=== PATIENT | male | born 1940 | race Caucasian/White ===

== ENCOUNTER 2016-07-18 08:58 | Observation (INO) | payer OTHER ==
--- NOTE | 2016-07-18 09:33 | DR.GENAD ---
HPI - PCP Primary Care Physician: lizeth - HPI Comment HPI Comment: PATIENT WITH DEMENTIA WHO IS MORE CONFUSE CURRENTLY. HE IS ALSO URINATING A LOT. STARTED YESTERDAY AND WORSE TODAY. NO FEVER. NO TRAUMA. - Complaint/Symptoms Chief Complaint Doctors Comments: AMS, URINATING A LOT. Chief Complaint:: patient has been urinating alot the past couple of days and he stated he hurts in his penis area. patient has dementai - Nurses notes reviewed Nurses Notes Review: Yes - Source History Provided: Patient - Mode of Arrival Mode of Arrival: Ambulatory - Timing Onset of Chief Complaint: 07/17/16 Came on: Suddenly - Duration Duration: Constant Duration: Days - Severity Severity: Moderate PMH - PMH Past Medical History: Yes Past Medical History: Dementia, Hypertension Past Surgical History: Yes Surgical History: Appendectomy, Cholecystectomy, Ortho Surgery Past Surgical History Comment: eye - Family History History of Family Medical Conditions: No - Social History Does patient currently use any type of tobacco product: No Have you used tobacco products in the last 12 months: No Type of Tobacco Use: None Does any household member use tobacco: No Alcohol Use: None Do you use any recreational Drugs:: No Lives With: Family Lives Where: Home - infectious screening In the last 2 months have you had wt loss of >10#?: YES Have you had fever, night sweats or hemotysis?: No Have you traveled outside the country in the last 6 months?: No Isolation: Standard ROS - Review of Systems Constitutional: Weakness, Fatigue, Loss of Appetite. negative: Chills, Fever Eyes: No Symptoms Reported. negative: Eye Pain, Discharge ENTM: No Symptoms Reported. negative: Ear Pain, Nose Discharge, Nose Congestion , Throat Pain Respiratoy: Non-Productive Cough, Short of Breath. negative: Productive Cough, Wheezing, Hemoptysis Cardiovascular: negative: Chest Pain, Edema, Palpitations Gastrointestinal/Abdominal: No Symptoms Reported Genitourinary: Other (URINATING A LOT.). negative: Hematuria Neurological: Weakness Musculoskeletal: Muscle Pain Integumentary: No Symptoms Reported Hematologic/Lymphatic: Easy Bruising Endocrine: Increased Urine, Decreased Appetite All Other Systems: Reviewed and Negative Unable to Obtain Due To: Altered mental status PE - Vital Signs Vitals: Pulse Rate 58 Respiratory Rate 16 Blood Pressure 173/81 O2 Sat by Pulse Oximetry 99 - General Limitations: No Limitations General Appearance: Alert - Head Head Exam: Normal Inspection - Eyes Eye exam: Normal Appearance - ENT ENT Exam: Normal External Ear Exam External Ear Exam: Normal External Inspection TM/Canal Exam: Bilateral Normal Mouth Exam: Normal Inspection Throat Exam: Normal Inspection - Neck Neck Exam: Trachea Midline. negative: Tenderness, Meningismus, Lymphadenopathy - Chest Chest Inspection: Symmetric Chest Wall Rise - Respiratory Respiratory Exam: Normal Lung Sounds Bilat Respiratory Exam: Bilateral Rhonchi, Lower Rhonchi - Cardiovascular Cardiovascular Exam: Regular Rate, Normal Rhythm, Normal Heart Sounds - Abdominal Exam Abdominal Exam: Normal Bowel Sounds, Soft. negative: Tenderness - Extremities Extremities Exam: Normal Inspection - Back Back Exam: Paraspinal Tenderness - Neurologic Neurological Exam: Alert, CN II-XII Intact. negative: Oriented X3 - Psychiatric Psychiatric Exam: Anxious - Skin Skin Exam: Normal Color MDM - Additional Information Additional Information Obtained From: Family - Differential Diagnosis Differential Diagnosis: AMS, WEAKNESS, BRADYCARDIA, ND, CVA, TIA, UTI Course - Treatment Treatment: SEE ORDERS - Education/Counseling Education/Counseling: Patient, Family, Education Educated On: Diagnosis, Needs for Follow Up ROR - Labs Reviewed Laboratory Results Reviewed?: Yes Result Diagrams: 07/19/16 03:50 07/19/16 03:50 Laboratory: WBC 5.5 X10^3/uL (3.6-10.0) 07/18/16 09:55 RBC 4.91 X10^6/uL (4.7-6.0) 07/18/16 09:55 Hgb 14.2 g/dL (13.5-18.0) 07/18/16 09:55 Hct 40.6 % (42.0-54.0) L 07/18/16 09:55 MCV 82.8 fL (80.0-100.0) 07/18/16 09:55 MCH 28.9 pg (27.0-34.0) 07/18/16 09:55 MCHC 34.9 g/dL (33.0-35.0) 07/18/16 09:55 RDW 14.6 % (11.6-16.5) 07/18/16 09:55 Plt Count 146 X10^3/uL (150.0-450.0) L 07/18/16 09:55 MPV 8.0 fL (7.4-11.0) 07/18/16 09:55 Neut % 65.8 % (42.0-75.0) 07/18/16 09:55 Lymph % 23.7 % (21.0-51.0) 07/18/16 09:55 [place] % 6.2 % (0.0-13.0) 07/18/16 09:55 Eos % 2.9 % (0.9-2.9) 07/18/16 09:55 Baso % 1.4 % (0.2-1.0) H 07/18/16 09:55 Neut # 3.6 x10^3/uL (2.2-4.8) 07/18/16 09:55 Lymph # 1.3 X10^3/uL (1.3-2.9) 07/18/16 09:55 [place] # 0.3 x10^3/uL (0.3-0.8) 07/18/16 09:55 Eos # 0.2 x10^3/uL (0.0-0.2) 07/18/16 09:55 Baso # 0.1 X10^3/uL (0.0-0.1) 07/18/16 09:55 Absolute Nucleated RBC 0.1 /100WBC 07/18/16 09:55 Sodium 141 mmol/L (136-145) 07/18/16 09:55 Corrected Sodium 141 mmol/L (136-145) 07/18/16 09:55 Potassium 4.5 mmol/L (3.5-5.1) 07/18/16 09:55 Chloride 107 mmol/L (98-107) 07/18/16 09:55 Carbon Dioxide 31.2 mmol/L (21-32) 07/18/16 09:55 BUN 24 mg/dL (7-18) H 07/18/16 09:55 Creatinine 1.24 mg/dL (0.70-1.30) 07/18/16 09:55 Est GFR (MDRD) Af Amer > 60 (>60) 07/18/16 09:55 Est GFR (MDRD) Non-Af > 60 (>60) 07/18/16 09:55 Glucose 120 mg/dL (65-99) H 07/18/16 09:55 Calcium 9.2 mg/dL (8.5-10.1) 07/18/16 09:55 Corrected Calcium TNP 07/18/16 09:55 Total Bilirubin 0.70 mg/dL (0.2-1.0) 07/18/16 09:55 AST 27 Units/L (15-37) 07/18/16 09:55 ALT 28 Units/L (12-78) 07/18/16 09:55 Alkaline Phosphatase 48 Units/L (46-116) 07/18/16 09:55 Creatine Kinase 83 Units/L (39-308) 07/18/16 09:55 CK-MB (CK-2) 1.8 ng/mL (0-4.0) 07/18/16 09:55 CK/CKMB % Calc 2.2 % (<4) 07/18/16 09:55 Troponin I < 0.02 ng/mL (0-1.5) 07/18/16 09:55 B-Natriuretic Peptide 80.8 pg/mL (0-79) H 07/18/16 09:55 Total Protein 6.6 g/dL (6.4-8.2) 07/18/16 09:55 Albumin 3.7 g/dL (3.4-5.0) 07/18/16 09:55 Globulin 2.9 g/dL (2.5-4.5) 07/18/16 09:55 Albumin/Globulin Ratio 1.3 Ratio (1.1-2.1) 07/18/16 09:55 Specimen Type Clean catch urine 07/18/16 09:43 Urine Color Yellow (YELLOW) 07/18/16 09:43 Urine Appearance Hazy (CLEAR) 07/18/16 09:43 Urine pH 8.0 (5.0 - 8.0) 07/18/16 09:43 Ur Specific [place] 1.015 (1.000-1.030) 07/18/16 09:43 Urine Protein Negative (NEGATIVE) 07/18/16 09:43 Urine Glucose (UA) Negative (NEGATIVE) 07/18/16 09:43 Urine Ketones Negative (NEGATIVE) 07/18/16 09:43 Urine Occult Blood Negative (NEGATIVE) 07/18/16 09:43 Urine Nitrite Negative (NEGATIVE) 07/18/16 09:43 Urine Bilirubin Negative (NEGATIVE) 07/18/16 09:43 Urine Urobilinogen Normal (NORMAL) 07/18/16 09:43 Ur Leukocyte Esterase Negative (NEGATIVE) 07/18/16 09:43 Urine RBC 0-1 /HPF (NEGATIVE) 07/18/16 09:43 Urine WBC 0-1 /HPF (NEGATIVE) 07/18/16 09:43 Ur Squamous Epith Cells Rare /HPF (NEGATIVE) 07/18/16 09:43 Amorphous Sediment 2+ /HPF (NEGATIVE) 07/18/16 09:43 Urine Bacteria Trace /HPF (NEGATIVE) 07/18/16 09:43 Ur Culture Indicated? No/not indicated 07/18/16 09:43 - XRAY XRAY Interpreted by: Radiologist XRAY Findings: REPORT DISCUSS WITH FAMILY AND PATIENT. - EKG Rhythm: SB - Diagnosis Discharge Problem: Generalized weakness Mental status alteration Qualifiers: Altered mental status type: transient alteration of awareness Qualified Code(s) : R40.4 - Transient alteration of awareness - Discharge Plan Disposition: ADMITTED INPATIENT Condition: Stable - Follow ups/Referrals - Instructions
[2016-07-18 09:50] LABS: BILIRUBIN,URINE NEGATIVE (NEGATIVE); BLOOD/HEMOGLOBIN,URINE NEGATIVE (NEGATIVE); GLUCOSE, URINE NEGATIVE (NEGATIVE); KETONES,URINE NEGATIVE (NEGATIVE); LEUKOCYTE ESTERASE ,URINE NEGATIVE (NEGATIVE); NITRITES,URINE NEGATIVE (NEGATIVE); PROTEIN,URINE NEGATIVE (NEGATIVE); UROBILINOGEN,URINE NORMAL (NORMAL)
[2016-07-18 10:02] LABS: AMORPHOUS SEDIMENT,UR 2+ /HPF (NEGATIVE); APPEARANCE,URINE HAZY (CLEAR); BACTERIA,URINE TRACE /HPF (NEGATIVE); COLOR,URINE YELLOW (YELLOW); RBC,URINE 0-1 /HPF (NEGATIVE); SQUAMOUS EPITHELIAL CELL,UR RARE /HPF (NEGATIVE)
[2016-07-18 10:08] LABS: BASOPHILS # (AUTO) 0.1 X10^3/uL (0.0-0.1); BASOPHILS % (AUTO) 1.4 % (0.2-1.0); EOSINOPHILS # (AUTO) 0.2 x10^3/uL (0.0-0.2); EOSINOPHILS % (AUTO) 2.9 % (0.9-2.9); HEMATOCRIT 40.6 % (42.0-54.0); HEMOGLOBIN 14.2 g/dL (13.5-18.0); LYMPHOCYTES # (AUTO) 1.3 X10^3/uL (1.3-2.9); LYMPHOCYTES % (AUTO) 23.7 % (21.0-51.0); MEAN CORPUSCULAR HEMOGLOBIN 28.9 pg (27.0-34.0); MEAN CORPUSCULAR HGB CONC 34.9 g/dL (33.0-35.0); MEAN CORPUSCULAR VOLUME 82.8 fL (80.0-100.0); MONOCYTES # (AUTO) 0.3 x10^3/uL (0.3-0.8); MONOCYTES % (AUTO) 6.2 % (0.0-13.0); NEUTROPHILS # (AUTO) 3.6 x10^3/uL (2.2-4.8); NEUTROPHILS % (AUTO) 65.8 % (42.0-75.0); PLATELET COUNT 146 X10^3/uL (150.0-450.0); RED BLOOD COUNT 4.91 X10^6/uL (4.7-6.0); RED CELL DISTRIBUTION WIDTH 14.6 % (11.6-16.5); WHITE BLOOD COUNT 5.5 X10^3/uL (3.6-10.0)
--- NOTE | 2016-07-18 10:13 | RAD ---
HISTORY: Chest pain Study: Chest one view Comparison: None Findings: The trachea is midline. The cardiac silhouette is unremarkable. The lungs are clear without focal infiltrate or effusion. The bony thorax is unremarkable. IMPRESSION: 1. No acute cardiopulmonary disease. Reported By:
[2016-07-18 10:20] LABS: BLOOD UREA NITROGEN 24 mg/dL (7-18); CALCIUM 9.2 mg/dL (8.5-10.1); CARBON DIOXIDE 31.2 mmol/L (21-32); CHLORIDE 107 mmol/L (98-107); COR NA(FOR HYPERGLY) 141 mmol/L (136-145); CREATININE 1.24 mg/dL (0.70-1.30); GLUCOSE 120 mg/dL (65-99); SODIUM 141 mmol/L (136-145); TROPONIN I < 0.02 ng/mL (0-1.5); eGFR BLACK RACES > 60 (>60); eGFR NON BLACK RACES > 60 (>60)
[2016-07-18 10:22] LABS: B-TYPE NATRIURETIC PEPTIDE 80.8 pg/mL (0-79)
[2016-07-18 10:24] LABS: ALANINE AMINOTRANSFERASE 28 Units/L (12-78); ALBUMIN 3.7 g/dL (3.4-5.0); ALKALINE PHOSPHATASE 48 Units/L (46-116); ASPARTATE AMINO TRANSFERASE 27 Units/L (15-37); CKMB % 2.2 % (<4); CREATINE KINASE 83 Units/L (39-308); CREATINE KINASE MB 1.8 ng/mL (0-4.0); TOTAL PROTEIN 6.6 g/dL (6.4-8.2)
--- NOTE | 2016-07-18 12:13 | CT ---
HISTORY: Altered mental status Study: CT head without contrast Comparison: None Technique: Axial non contrast images with coronal and sagittal reformats. Dose reduction procedures were used with MA/kv adjusted for body size. Findings: The ventricles are normal in size shape and position. Age-related cortical atrophy is present. There is decreased attenuation in the periventricular white matter suggestive of small vessel vascular di sease. Old lacunar infarcts are present in the right thalamus and left centrum semiovale. There is n o definite evidence for visible recent CVA, hemorrhage, mass lesion, or extra-axial fluid collection . Those sinuses visualized were clear. 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
[2016-07-18] MEDS: NS 1000 ML 1,000 ML IV SCH ×2 (14:40→22:31)
[2016-07-18 16:09] LABS: CKMB % 1.7 % (<4); CREATINE KINASE 79 Units/L (39-308); CREATINE KINASE MB 1.3 ng/mL (0-4.0); TROPONIN I < 0.02 ng/mL (0-1.5)
[2016-07-18] MEDS: VISTARIL PO PRN (18:35)
[2016-07-18] MEDS: FLOMAX PO SCH (21:10)
[2016-07-18 22:58] LABS: CKMB % 1.5 % (<4); CREATINE KINASE 104 Units/L (39-308); CREATINE KINASE MB 1.6 ng/mL (0-4.0); TROPONIN I < 0.02 ng/mL (0-1.5)
[2016-07-19] MEDS: NS 1000 ML 1,000 ML IV SCH ×3 (05:59→21:36)
[2016-07-19 06:22] LABS: BASOPHILS # (AUTO) 0.1 X10^3/uL (0.0-0.1); BASOPHILS % (AUTO) 1.2 % (0.2-1.0); EOSINOPHILS # (AUTO) 0.2 x10^3/uL (0.0-0.2); EOSINOPHILS % (AUTO) 4.7 % (0.9-2.9); LYMPHOCYTES # (AUTO) 1.7 X10^3/uL (1.3-2.9); LYMPHOCYTES % (AUTO) 36.1 % (21.0-51.0); MEAN CORPUSCULAR HGB CONC 35.1 g/dL (33.0-35.0); MEAN CORPUSCULAR VOLUME 82.7 fL (80.0-100.0); MEAN PLATELET VOLUME 8.8 fL (7.4-11.0); MONOCYTES # (AUTO) 0.4 x10^3/uL (0.3-0.8); MONOCYTES % (AUTO) 8.4 % (0.0-13.0); NEUTROPHILS # (AUTO) 2.3 x10^3/uL (2.2-4.8); NEUTROPHILS % (AUTO) 49.6 % (42.0-75.0); PLATELET COUNT 120 X10^3/uL (150.0-450.0); RED BLOOD COUNT 4.48 X10^6/uL (4.7-6.0); RED CELL DISTRIBUTION WIDTH 14.3 % (11.6-16.5); WHITE BLOOD COUNT 4.7 X10^3/uL (3.6-10.0)
[2016-07-19 07:17] LABS: ALANINE AMINOTRANSFERASE 25 Units/L (12-78); ALBUMIN 3.1 g/dL (3.4-5.0); ALKALINE PHOSPHATASE 41 Units/L (46-116); ASPARTATE AMINO TRANSFERASE 25 Units/L (15-37); BLOOD UREA NITROGEN 20 mg/dL (7-18); CALCIUM 8.6 mg/dL (8.5-10.1); CARBON DIOXIDE 26.4 mmol/L (21-32); CHLORIDE 110 mmol/L (98-107); COR CA(FOR HYPOALB) 9.3 mg/dL (8.5-10.1); CREATININE 1.01 mg/dL (0.70-1.30); GLUCOSE 84 mg/dL (65-99); SODIUM 143 mmol/L (136-145); TOTAL PROTEIN 5.6 g/dL (6.4-8.2); eGFR BLACK RACES > 60 (>60); eGFR NON BLACK RACES > 60 (>60)
[2016-07-19] MEDS: ZESTRIL TAB 40 MG PO SCH (09:26)
--- NOTE | 2016-07-19 11:24 | CT ---
HISTORY: Low back pain. Study: CT lumbar spine without contrast Comparison: None available. Technique: Multiple axial images of the lumbar spine were obtained from the thoracolumbar junction to the sacrum without the administration of IV contrast. Sagittal and coronal reformats were perfor med and reviewed. Dose reduction techniques including Automated Exposure Control (AEC) and adjustme nt of mA and kV were utilized. Findings: Diffuse osteopenia. Multilevel disc desiccation with mild to moderate disk height loss. No acute fra cture or listhesis. Multilevel facet arthrosis, endplate sclerosis, and disk osteophyte complexes. 1 .3 cm hypodense lesion within the right superior renal pole with internal Hounsfield units consisten t with fluid. There is some thin surrounding calcification. 2 nonobstructing left superior renal lucretia e nephroliths, the largest measuring 6 mm in greatest dimension. Moderate atherosclerotic vascular c alcifications of the abdominal aorta and its major branching vessels. No obvious aneurysmal dilatati on. Remaining soft tissue structures demonstrate an unremarkable noncontrast appearance. IMPRESSION: 1. No acute osseous abnormality. 2. Nonobstructing left renal nephroliths. 3. Other chronic findings as above. Reported By:
--- NOTE | 2016-07-19 13:47 | DR.H&P ---
H&P - History & Physical for Day of: H&P Date: 07/18/16 - Chief Complaint Chief Complaint: PATIENT WITH DEMENTIA WHO IS MORE CONFUSE CURRENTLY. HE IS ALSO URINATING A LOT. STARTED YESTERDAY AND WORSE TODAY. NO FEVER. NO TRAUMA. - Allergies Allergies/Adverse Reactions: Allergies Allergy/AdvReac Type Severity Reaction Status Date / Time Codeine Allergy Verified 07/18/16 09:00 - History of Present Illness History of Present Illness: [address] NORIEGA ADMITTED FROM ER AFTER PRESENTING WITH INCREASED WEAKNESS AND CONFUSION. PT'S FAMILY CONCERNED ABOUT POSSIBLE CVA, AND PT HAS NEVER BEEN "DIAGNOSED" WITH DEMENTIA. PLAN TO CT HEAD, ADMIT FOR FURTHER EVALUATION OF CHANGES IN MENTAL STATUS. - Past Medical History Past Medical History: Arthritis, Dementia, GERD, Hypertension - Past Surgical History Surgical History: Appendectomy, Cholecystectomy, Ortho Surgery - Family History Family Medical History: [place] - Social History Does patient currently use any type of tobacco product: No Have you used tobacco products in the last 12 months: No Type of Tobacco Use: None Does any household member use tobacco: No Alcohol Use: None Drug Use: None - Medications Home Medications: Lisinopril [Lisinopril] 40 mg PO DAILY 07/18/16 [History Confirmed 07/18/16] Tamsulosin HCl [FLOMAX (GENERIC) 0.4 MG *] 0.4 mg PO HS 07/18/16 [History Confirmed 07/18/16] - Review of Systems Constitutional: Weakness Eyes: No Symptoms Reported ENT: No Symptoms Reported Respiratory: No Symptoms Reported Cardiovascular: No Symptoms Reported Gastrointestinal: No Symptoms Reported Genitourinary: Incontinence Musculoskeletal: Back Pain, Neck Pain Skin: No Symptoms Reported Neurological: Confusion - Physical Exam Vital Signs: Temperature 97.1 F Pulse Rate [Right Brachial] 53 Respiratory Rate 22 Blood Pressure [Right Arm] 143/65 O2 Sat by Pulse Oximetry 96 Oriented: Person (VERY HARD OF HEARING) Eyes: Normal Ear: Normal Nose: Normal Throat: Normal Respiratory: RLL Diminished, LLL Diminished Cardiovascular: Normal : Normal Auscultation: Bowel Sounds: Normal Palpation: Normal Tenderness: Normal Skin: Normal Musculoskeletal: Back:Lumbar Mood Description: Flat Speech Pattern: Clear - Assessment/Plan (1) Mental status alteration Qualifiers: Altered mental status type: transient alteration of awareness Coma depth: C Coma timing: C Qualified Code(s): R40.4 - Transient alteration of awareness Status: Acute Plan: ADMIT, CT HEAD,. ADMISSION LABS, EKG, CXR. RESUME HOME MEDS. BP AND LIPID CONTROL (2) Generalized weakness Status: Acute (3) Hypertension Qualifiers: Hypertension type: H Status: Acute (4) Hyperlipidemia Qualifiers: Hyperlipidemia type: H Status: Acute (5) Osteoarthritis Qualifiers: Osteoarthritis location: O Osteoarthritis type: O Spinal region: S Spinal osteoarthritis complication: S Laterality: L Status: Acute
--- NOTE | 2016-07-19 13:51 | PCM.PROG ---
Progress Note - Progress Note for Day of Date: 07/19/16 - Subjective Subjective: 75 WM ADMITTED ONE DAY AGO WITH AMS, WEAKNESS. PT'S CT REVEALED OLD CVAS, CHRONIC VASCULAR CHANGES. PT CO LUMBAR SPINE PAIN AND INCONTINENCE. PLAN TO CT L SPINE AND PSA LEVEL, WILL CONTINUE BP AND LIPID CONTROL - Past Medical Family Social History Past Med/Fam/Surg Hx: No changes since H&P Allergies: Allergies Codeine Allergy (Verified 07/18/16 09:00) - Review of Systems ROS: No change since H&P - Vital Signs and I&O's Vital Signs: Temperature 97.1 F Pulse Rate [Right Brachial] 53 Respiratory Rate 22 Blood Pressure [Right Arm] 143/65 O2 Sat by Pulse Oximetry 96 Intake and Output: Intake & Output 07/17/16 07/18/16 07/19/16 07/20/16 11:59 11:59 11:59 11:59 Intake Total 420 Output Total 550 Balance -130 - Physical Exam Oriented: Person (VERY HARD OF HEARING) Eyes: Normal Ear: Normal Nose: Normal Throat: Normal Respiratory: Diminished Cardiovascular: Normal : Normal Auscultation: Bowel Sounds: Normal Tenderness: Normal Skin: Normal Musculoskeletal: Back:Lumbar Mood Description: Flat Speech Pattern: Clear - Laboratory and Diagnostics Result Diagrams: 07/19/16 03:50 07/19/16 03:50 Labs: Laboratory WBC 4.7 X10^3/uL (3.6-10.0) 07/19/16 03:50 RBC 4.48 X10^6/uL (4.7-6.0) L 07/19/16 03:50 Hgb 13.0 g/dL (13.5-18.0) L 07/19/16 03:50 Hct 37.0 % (42.0-54.0) L 07/19/16 03:50 MCV 82.7 fL (80.0-100.0) 07/19/16 03:50 MCH 29.0 pg (27.0-34.0) 07/19/16 03:50 MCHC 35.1 g/dL (33.0-35.0) H 07/19/16 03:50 RDW 14.3 % (11.6-16.5) 07/19/16 03:50 Plt Count 120 X10^3/uL (150.0-450.0) L 07/19/16 03:50 MPV 8.8 fL (7.4-11.0) 07/19/16 03:50 Neut % 49.6 % (42.0-75.0) 07/19/16 03:50 Lymph % 36.1 % (21.0-51.0) 07/19/16 03:50 [place] % 8.4 % (0.0-13.0) 07/19/16 03:50 Eos % 4.7 % (0.9-2.9) H 07/19/16 03:50 Baso % 1.2 % (0.2-1.0) H 07/19/16 03:50 Neut # 2.3 x10^3/uL (2.2-4.8) 07/19/16 03:50 Lymph # 1.7 X10^3/uL (1.3-2.9) 07/19/16 03:50 [place] # 0.4 x10^3/uL (0.3-0.8) 07/19/16 03:50 Eos # 0.2 x10^3/uL (0.0-0.2) 07/19/16 03:50 Baso # 0.1 X10^3/uL (0.0-0.1) 07/19/16 03:50 Absolute Nucleated RBC 0.1 /100WBC 07/19/16 03:50 Sodium 143 mmol/L (136-145) 07/19/16 03:50 Corrected Sodium TNP 07/19/16 03:50 Potassium 3.7 mmol/L (3.5-5.1) 07/19/16 03:50 Chloride 110 mmol/L (98-107) H 07/19/16 03:50 Carbon Dioxide 26.4 mmol/L (21-32) 07/19/16 03:50 BUN 20 mg/dL (7-18) H 07/19/16 03:50 Creatinine 1.01 mg/dL (0.70-1.30) 07/19/16 03:50 Est GFR (MDRD) Af Amer > 60 (>60) 07/19/16 03:50 Est GFR (MDRD) Non-Af > 60 (>60) 07/19/16 03:50 Glucose 84 mg/dL (65-99) 07/19/16 03:50 Calcium 8.6 mg/dL (8.5-10.1) 07/19/16 03:50 Corrected Calcium 9.3 mg/dL (8.5-10.1) 07/19/16 03:50 Total Bilirubin 0.60 mg/dL (0.2-1.0) 07/19/16 03:50 AST 25 Units/L (15-37) 07/19/16 03:50 ALT 25 Units/L (12-78) 07/19/16 03:50 Alkaline Phosphatase 41 Units/L (46-116) L 07/19/16 03:50 Creatine Kinase 104 Units/L (39-308) 07/18/16 22:09 CK-MB (CK-2) 1.6 ng/mL (0-4.0) 07/18/16 22:09 CK/CKMB % Calc 1.5 % (<4) 07/18/16 22:09 Troponin I < 0.02 ng/mL (0-1.5) 07/18/16 22:09 B-Natriuretic Peptide 80.8 pg/mL (0-79) H 07/18/16 09:55 Total Protein 5.6 g/dL (6.4-8.2) L 07/19/16 03:50 Albumin 3.1 g/dL (3.4-5.0) L 07/19/16 03:50 Globulin 2.5 g/dL (2.5-4.5) 07/19/16 03:50 Albumin/Globulin Ratio 1.2 Ratio (1.1-2.1) 07/19/16 03:50 Total PSA 1.11 ng/mL (0.13-4.0) 07/19/16 03:50 Specimen Type Clean catch urine 07/18/16 09:43 Urine Color Yellow (YELLOW) 07/18/16 09:43 Urine Appearance Hazy (CLEAR) 07/18/16 09:43 Urine pH 8.0 (5.0 - 8.0) 07/18/16 09:43 Ur Specific [place] 1.015 (1.000-1.030) 07/18/16 09:43 Urine Protein Negative (NEGATIVE) 07/18/16 09:43 Urine Glucose (UA) Negative (NEGATIVE) 07/18/16 09:43 Urine Ketones Negative (NEGATIVE) 07/18/16 09:43 Urine Occult Blood Negative (NEGATIVE) 07/18/16 09:43 Urine Nitrite Negative (NEGATIVE) 07/18/16 09:43 Urine Bilirubin Negative (NEGATIVE) 07/18/16 09:43 Urine Urobilinogen Normal (NORMAL) 07/18/16 09:43 Ur Leukocyte Esterase Negative (NEGATIVE) 07/18/16 09:43 Urine RBC 0-1 /HPF (NEGATIVE) 07/18/16 09:43 Urine WBC 0-1 /HPF (NEGATIVE) 07/18/16 09:43 Ur Squamous Epith Cells Rare /HPF (NEGATIVE) 07/18/16 09:43 Amorphous Sediment 2+ /HPF (NEGATIVE) 07/18/16 09:43 Urine Bacteria Trace /HPF (NEGATIVE) 07/18/16 09:43 Ur Culture Indicated? No/not indicated 07/18/16 09:43 - Plan (1) Mental status alteration Status: Acute Qualifiers: Altered mental status type: transient alteration of awareness Coma depth: C Coma timing: C Qualified Code(s): R40.4 - Transient alteration of awareness Plan: CT REVEALED OLD CVA'S, DISCUSSED CHRONIC FINDING WITH FAMILY. RESUME HOME MEDS, AM LABS. BP AND LIPID CONTROL (2) Generalized weakness Status: Acute (3) Hypertension Status: Acute Qualifiers: Hypertension type: H (4) Hyperlipidemia Status: Acute Qualifiers: Hyperlipidemia type: H (5) Osteoarthritis Status: Acute Qualifiers: Osteoarthritis location: O Osteoarthritis type: O Spinal region: S Spinal osteoarthritis complication: S Laterality: L Plan: L SPINE CT
[2016-07-19] MEDS: ASPIRIN EC 81 MG PO SCH (14:33)
[2016-07-19] MEDS: VISTARIL PO PRN ×2 (14:33→21:34)
[2016-07-19 14:42] LABS: FREE T4 (FREE THYROXINE) 1.05 ng/dL (0.76-1.46); TSH (3RD GENERATION) 1.543 uIU/mL (0.358-3.74)
[2016-07-19] MEDS ORDERED: ZOCOR TAB 10 MG PO SCH (21:00)
[2016-07-19] MEDS: FLOMAX PO SCH (21:27)
[2016-07-20] MEDS: NS 1000 ML 1,000 ML IV SCH (04:38)
[2016-07-20 06:13] LABS: BASOPHILS # (AUTO) 0.1 X10^3/uL (0.0-0.1); BASOPHILS % (AUTO) 1.3 % (0.2-1.0); EOSINOPHILS # (AUTO) 0.2 x10^3/uL (0.0-0.2); EOSINOPHILS % (AUTO) 4.6 % (0.9-2.9); HEMATOCRIT 37.9 % (42.0-54.0); HEMOGLOBIN 13.3 g/dL (13.5-18.0); LYMPHOCYTES # (AUTO) 1.6 X10^3/uL (1.3-2.9); LYMPHOCYTES % (AUTO) 31.6 % (21.0-51.0); MEAN CORPUSCULAR VOLUME 83.1 fL (80.0-100.0); MEAN PLATELET VOLUME 8.6 fL (7.4-11.0); MONOCYTES # (AUTO) 0.4 x10^3/uL (0.3-0.8); MONOCYTES % (AUTO) 8.4 % (0.0-13.0); NEUTROPHILS # (AUTO) 2.8 x10^3/uL (2.2-4.8); NEUTROPHILS % (AUTO) 54.1 % (42.0-75.0); PLATELET COUNT 123 X10^3/uL (150.0-450.0); RED BLOOD COUNT 4.57 X10^6/uL (4.7-6.0); RED CELL DISTRIBUTION WIDTH 14.2 % (11.6-16.5); WHITE BLOOD COUNT 5.2 X10^3/uL (3.6-10.0)
--- NOTE | 2016-07-20 06:36 | VAS ---
HISTORY: Hypertension, cardiovascular disease, confusion Study: Carotid sonogram Comparison: None Technique: Multiple fuentes scale and color flow Doppler images of the right and left carotid arterial system were obtained. The vertebral arterial system was evaluated as well. Findings: Mild plaque is present at both carotid bifurcations. Normal color flow Doppler is seen throughout th e right and left carotid arterial system. No hemodynamically significant stenosis is seen based on velocity criteria. The right and left vertebral arteries demonstrate antegrade flow. IMPRESSION: 1. No hemodynamically significant stenosis. Reported By:
[2016-07-20 06:46] LABS: ALANINE AMINOTRANSFERASE 25 Units/L (12-78); ALBUMIN 3.1 g/dL (3.4-5.0); ALKALINE PHOSPHATASE 40 Units/L (46-116); ASPARTATE AMINO TRANSFERASE 25 Units/L (15-37); BLOOD UREA NITROGEN 16 mg/dL (7-18); CALCIUM 8.9 mg/dL (8.5-10.1); CARBON DIOXIDE 26.2 mmol/L (21-32); CHLORIDE 111 mmol/L (98-107); CHOL/HDL RATIO 2.5 (0.0-5.0); CHOLESTEROL 165 mg/dL (0-200); COR CA(FOR HYPOALB) 9.6 mg/dL (8.5-10.1); CREATININE 0.88 mg/dL (0.70-1.30); GLUCOSE 93 mg/dL (65-99); HDL CHOLESTEROL 66 mg/dL (40-60); SODIUM 146 mmol/L (136-145); TOTAL PROTEIN 5.7 g/dL (6.4-8.2); TRIGLYCERIDES 28 mg/dL (0-150); eGFR BLACK RACES > 60 (>60); eGFR NON BLACK RACES > 60 (>60)
[2016-07-20] MEDS: ZESTRIL TAB 40 MG PO SCH (09:08)
[2016-07-20] MEDS: ASPIRIN EC 81 MG PO SCH (09:08)
[2016-07-20 12:08] VITALS: BP 184/79
== END 2016-07-20 14:00 | disposition home health service (06) ==
LOC: ER 09:11 → MED/SURG 13:33
PROVIDERS: ADMIT Internal Medicine; ATTEND Internal Medicine
DX: R40.4 Transient alteration of awareness (principal); E86.0 Dehydration; R53.1 Weakness; I10 Essential (primary) hypertension; R35.0 Frequency of micturition; M13.89 Other specified arthritis, multiple sites; K21.9 Gastro-esophageal reflux disease without esophagitis; E78.2 Mixed hyperlipidemia; M47.896 Other spondylosis, lumbar region; R26.89 Other abnormalities of gait and mobility; Z86.73 Personal history of transient ischemic attack (TIA), and cerebral infarction without residual deficits; R06.02 Shortness of breath
CPT/HCPCS: 36415; 70450; 71010; 72131; 80053; 80061; 81001; 82550; 82553; 83880; 84153; 84439; 84443; 84484; 85025; 93005; 93010; 93880; 94760; 96365; 96375; 99284; A4222; G8978; G8979; Q0177; G0378

== ENCOUNTER 2016-09-12 08:12 | Observation (INO) | payer OTHER ==
--- NOTE | 2016-09-12 08:26 | DR.AMS ---
HPI - Time Seen Time seen: 08:20 - Complaint Cheif Complaint Doctors Comments: Patient presented to the ED by family member with complaint of AMS, shortness of breath. Spouse reports that he was discharged from the hospital two weeks ago and at that times he had left sided weakness, hearing deficit and was getting weekly therapy. Spouse stated that he was in his usual state of health at 0530 this AM and at 0600 while in the bath room he started acting differently. He was repeating the statement get away from hear. He became nonambulatory in attempt to get him to the car. He will not respond to questions but to sternal rub. PMH - PMH Past Medical History: Arthritis, Dementia, GERD, Hypertension Past Surgical History: Yes Surgical History: Appendectomy, Cholecystectomy, Ortho Surgery - Family History Family Medical History: [place] - Social History Do you use any recreational Drugs:: No ROS - Review of Systems Constitutional: negative: Diaphoresis Eyes: Other (undequal left small than right) ENTM: No Symptoms Reported Respiratoy: No Symptoms Reported Cardiovascular: No Symptoms Reported Gastrointestinal/Abdominal: No Symptoms Reported Genitourinary: No Symptoms Reported Neurological: No Symptoms Reported, Problems Walking, Speech Problem Musculoskeletal: No Symptoms Reported Integumentary: No Symptoms Reported Hematologic/Lymphatic: No Symptoms Reported Endocrine: No Symptoms Reported Psychiatric: No Symptoms Reported All Other Systems: Reviewed and Negative PE - Vitals Vital Signs: Temp Pulse Resp BP BP Pulse Ox 09/12/16 08:36 98.8 F 51 L 16 161/77 99 07/20/16 12:00 184/79 184/79 - General Limitations: Altered Mental Status General Appearance: Alert, In No Apparent Distress - Head Head Exam: Normal Inspection, Atraumatic - Eyes Eye exam: EOMI, Miosis (left pupil small ~2mm; right ~4mm) Pupils: Non Reactive/Fixed: Bilateral, Size: Left (~2mm), Size: Right (~4mm) - ENT ENT Exam: Normal Exam External Ear Exam: Normal External Inspection TM/Canal Exam: Bilateral Normal Nose Exam: Normal Nose Exam Mouth Exam: Normal Inspection Throat Exam: Normal Inspection - Neck Neck Exam: Normal Inspection - Chest Chest Inspection: Normal Inspection - Respiratory Respiratory Exam: Normal Lung Sounds Bilat Respiratory Exam: Bilateral Clear to Auscultation - Cardiovascular Cardiovascular Exam: Regular Rate, Normal Rhythm - Abdominal Exam Abdominal Exam: Normal Inspection Abdominal Tenderness: negative: RUQ, RLQ, LUQ, LLQ, Epigastrium, Suprapubic, Diffuse, Mild, Moderate, Severe, Other - Extremities Extremities Exam: Normal Inspection - Back Back Exam: Normal Inspection - Neurological Neurological Exam: Alert, Oriented X3, CN II-XII Intact Speech: Total Aphasia Course - Consultation Called: 10:20 (Dr Bishop agreed to admit for further evaluation) ROR - Labs Reviewed Result Diagrams: 09/12/16 08:28 09/12/16 08: Laboratory: WBC 5.3 X10^3/uL (3.6-10.0) 09/12/16 08: RBC 4.66 X10^6/uL (4.7-6.0) L 09/12/16 08: Hgb 13.6 g/dL (13.5-18.0) 09/12/16 08: Hct 39.3 % (42.0-54.0) L 09/12/16 08: MCV 84.2 fL (80.0-100.0) 09/12/16 08: MCH 29.1 pg (27.0-34.0) 09/12/16 08: MCHC 34.6 g/dL (33.0-35.0) 09/12/16 08: RDW 13.8 % (11.6-16.5) 09/12/16 08: Plt Count 144 X10^3/uL (150.0-450.0) L 09/12/16 08: MPV 8.4 fL (7.4-11.0) 09/12/16: Neut % 63.2 % (42.0-75.0) 09/12/16 08: Lymph % 25.6 % (21.0-51.0) 09/12/16 08: [place] % 6.9 % (0.0-13.0) 09/12/16 08: Eos % 3.0 % (0.9-2.9) H 09/12/16 08: Baso % 1.3 % (0.2-1.0) H 09/12/16 08: Neut # 3.3 x10^3/uL (2.2-4.8) 09/12/16 08:28 Lymph # 1.3 X10^3/uL (1.3-2.9) 09/12/16 08:28 [place] # 0.4 x10^3/uL (0.3-0.8) 09/12/16 08:28 Eos # 0.2 x10^3/uL (0.0-0.2) 09/12/16 08:28 Baso # 0.1 X10^3/uL (0.0-0.1) 09/12/16 08:28 Absolute Nucleated RBC 0.1 /100WBC 09/12/16 08:28 INR Target Range - 09/12/16 08:28 INR 1.03 (0.8-1.3) 09/12/16 08:28 PTT 31.0 SECONDS (22.9-36.5) 09/12/16 08:28 PTT Comment - 09/12/16 08:28 D-Dimer 228 ng/mL (0-400) 09/12/16 08:28 Sodium 143 mmol/L (136-145) 09/12/16 08:28 Corrected Sodium TNP 09/12/16 08:28 Potassium 4.4 mmol/L (3.5-5.1) 09/12/16 08:28 Chloride 109 mmol/L (98-107) H 09/12/16 08:28 Carbon Dioxide 31.1 mmol/L (21-32) 09/12/16 08:28 BUN 28 mg/dL (7-18) H 09/12/16 08:28 Creatinine 1.00 mg/dL (0.70-1.30) 09/12/16 08:28 Est GFR (MDRD) Af Amer > 60 (>60) 09/12/16 08:28 Est GFR (MDRD) Non-Af > 60 (>60) 09/12/16 08:28 Glucose 108 mg/dL (65-99) H 09/12/16 08:28 Calcium 8.6 mg/dL (8.5-10.1) 09/12/16 08:28 Corrected Calcium TNP 09/12/16 08:28 Total Bilirubin 0.70 mg/dL (0.2-1.0) 09/12/16 08:28 AST 35 Units/L (15-37) 09/12/16 08:28 ALT 28 Units/L (12-78) 09/12/16 08:28 Alkaline Phosphatase 35 Units/L (46-116) L 09/12/16 08:28 Creatine Kinase 120 Units/L (39-308) 09/12/16 08:28 CK-MB (CK-2) 1.4 ng/mL (0-4.0) 09/12/16 08:28 CK/CKMB % Calc 1.2 % (<4) 09/12/16 08:28 Troponin I < 0.02 ng/mL (0-1.5) 09/12/16 08:28 Total Protein 6.3 g/dL (6.4-8.2) L 09/12/16 08: Albumin 3.6 g/dL (3.4-5.0) 09/12/16 08: Globulin 2.7 g/dL (2.5-4.5) 09/12/16 08: Albumin/Globulin Ratio 1.3 Ratio (1.1-2.1) 09/12/16 08:28 Specimen Type Clean catch urine 09/12/16 09:17 Urine Color Yellow (YELLOW) 09/12/16 09:17 Urine Appearance Clear (CLEAR) 09/12/16 09:17 Urine pH 6.0 (5.0 - 8.0) 09/12/16 09:17 Ur Specific [place] 1.015 (1.000-1.030) 09/12/16 09:17 Urine Protein Negative (NEGATIVE) 09/12/16 09:17 Urine Glucose (UA) Negative (NEGATIVE) 09/12/16 09:17 Urine Ketones Negative (NEGATIVE) 09/12/16 09:17 Urine Occult Blood Negative (NEGATIVE) 09/12/16 09:17 Urine Nitrite Negative (NEGATIVE) 09/12/16 09:17 Urine Bilirubin Negative (NEGATIVE) 09/12/16 09:17 Urine Urobilinogen Normal (NORMAL) 09/12/16 09:17 Ur Leukocyte Esterase Negative (NEGATIVE) 09/12/16 09:17 Urine RBC None seen /HPF (NEGATIVE) 09/12/16 09:17 Urine WBC None seen /HPF (NEGATIVE) 09/12/16 09:17 Ur Squamous Epith Cells Rare /HPF (NEGATIVE) 09/12/16 09:17 Amorphous Sediment 2+ /HPF (NEGATIVE) 09/12/16 09:17 Urine Bacteria Negative /HPF (NEGATIVE) 09/12/16 09:17 Urine Mucus Few /HPF (NEGATIVE) 09/12/16 09:17 Ur Culture Indicated? No/not indicated 09/12/16 09:17 - XRAY XRAY Interpreted by: Radiologist (Chest: No acute cardiopulmonary process) - Diagnosis Discharge Problem: Altered mental status Qualifiers: Altered mental status type: transient alteration of awareness Qualified Code(s) : R40.4 - Transient alteration of awareness - Discharge Plan Condition: Stable - Follow ups/Referrals Follow ups/Referrals: PEG BISHOP [Primary Care Provider] - 3 days - Instructions
[2016-09-12 08:38] LABS: BASOPHILS # (AUTO) 0.1 X10^3/uL (0.0-0.1); BASOPHILS % (AUTO) 1.3 % (0.2-1.0); EOSINOPHILS # (AUTO) 0.2 x10^3/uL (0.0-0.2); HEMATOCRIT 39.3 % (42.0-54.0); HEMOGLOBIN 13.6 g/dL (13.5-18.0); LYMPHOCYTES # (AUTO) 1.3 X10^3/uL (1.3-2.9); LYMPHOCYTES % (AUTO) 25.6 % (21.0-51.0); MEAN CORPUSCULAR HEMOGLOBIN 29.1 pg (27.0-34.0); MEAN CORPUSCULAR HGB CONC 34.6 g/dL (33.0-35.0); MEAN CORPUSCULAR VOLUME 84.2 fL (80.0-100.0); MEAN PLATELET VOLUME 8.4 fL (7.4-11.0); MONOCYTES # (AUTO) 0.4 x10^3/uL (0.3-0.8); MONOCYTES % (AUTO) 6.9 % (0.0-13.0); NEUTROPHILS # (AUTO) 3.3 x10^3/uL (2.2-4.8); NEUTROPHILS % (AUTO) 63.2 % (42.0-75.0); PLATELET COUNT 144 X10^3/uL (150.0-450.0); RED BLOOD COUNT 4.66 X10^6/uL (4.7-6.0); RED CELL DISTRIBUTION WIDTH 13.8 % (11.6-16.5); WHITE BLOOD COUNT 5.3 X10^3/uL (3.6-10.0)
--- NOTE | 2016-09-12 08:41 | RAD ---
Chest, one view Indication: Altered mental status Comparison: July 18, 2016 Findings: The cardiac silhouette is normal in size. The lungs are clear without focal consolidation. No pleural effusion or pneumothorax is identified. The osseous thorax is unremarkable. Impression: No acute cardiopulmonary abnormality. Reported By:
--- NOTE | 2016-09-12 08:43 | CT ---
HEAD CT WITHOUT IV CONTRAST CLINICAL INDICATION: Nonresponsive TECHNIQUE: Axial CT images from skull base to vertex without IV contrast.Dose reduction techniques i ncluding Automated Exposure Control (AEC) and adjustment of mA and kV were utlized. COMPARISON: 07/18/2016 FINDINGS: Old right full Emir lacunar infarct . Old left basal ganglia lacunar infarct . Diffuse patchy and c onfluent white matter hypoattenuation with associated volume loss. There is no evidence of acute inf arction, intracranial hemorrhage, mass or mass effect, or abnormal extra-axial collection. The densi ty of the larger dural venous sinuses is normal. Age-related, ex-vacuo dilatation of the ventricles and sulci. The skull base and calvarium are normal. The included paranasal sinuses and mastoid air c ells are predominantly clear. IMPRESSION: 1. No acute intracranial abnormality. If there is definite, focal, acute neurologic deficit, MRI wit h diffusion-weighted imaging would be more sensitive for detection of acute stroke. 2. Chronic microangiopathic changes and ex vacuo dilatation of the ventricles and sulci. Stable, chr onic bilateral lacunar infarcts. Reported By:
[2016-09-12 08:57] LABS: ALANINE AMINOTRANSFERASE 28 Units/L (12-78); ALBUMIN 3.6 g/dL (3.4-5.0); ALKALINE PHOSPHATASE 35 Units/L (46-116); ASPARTATE AMINO TRANSFERASE 35 Units/L (15-37); BLOOD UREA NITROGEN 28 mg/dL (7-18); CALCIUM 8.6 mg/dL (8.5-10.1); CARBON DIOXIDE 31.1 mmol/L (21-32); CHLORIDE 109 mmol/L (98-107); GLUCOSE 108 mg/dL (65-99); SODIUM 143 mmol/L (136-145); TOTAL PROTEIN 6.3 g/dL (6.4-8.2); eGFR BLACK RACES > 60 (>60); eGFR NON BLACK RACES > 60 (>60)
[2016-09-12 09:17] LABS: CKMB % 1.2 % (<4); CREATINE KINASE 120 Units/L (39-308); CREATINE KINASE MB 1.4 ng/mL (0-4.0); TROPONIN I < 0.02 ng/mL (0-1.5)
[2016-09-12 09:30] LABS: BILIRUBIN,URINE NEGATIVE (NEGATIVE); BLOOD/HEMOGLOBIN,URINE NEGATIVE (NEGATIVE); GLUCOSE, URINE NEGATIVE (NEGATIVE); KETONES,URINE NEGATIVE (NEGATIVE); LEUKOCYTE ESTERASE ,URINE NEGATIVE (NEGATIVE); NITRITES,URINE NEGATIVE (NEGATIVE); PROTEIN,URINE NEGATIVE (NEGATIVE); UROBILINOGEN,URINE NORMAL (NORMAL)
[2016-09-12 09:38] LABS: AMORPHOUS SEDIMENT,UR 2+ /HPF (NEGATIVE); APPEARANCE,URINE CLEAR (CLEAR); BACTERIA,URINE NEGATIVE /HPF (NEGATIVE); COLOR,URINE YELLOW (YELLOW); MUCUS,URINE FEW /HPF (NEGATIVE); RBC,URINE NONE SEEN /HPF (NEGATIVE); SQUAMOUS EPITHELIAL CELL,UR RARE /HPF (NEGATIVE)
[2016-09-12] MEDS: ZESTRIL TAB 40 MG PO SCH (12:19)
[2016-09-12] MEDS: NS 1000 ML 1,000 ML IV SCH (12:19)
[2016-09-12 16:14] VITALS: BMI 22.1
[2016-09-12] MEDS ORDERED: VISTARIL PO PRN (17:53)
[2016-09-12] MEDS: ZyPREXA TAB 5 MG PO ONE ×2 (18:58→19:49)
[2016-09-12 19:45] LABS: BILIRUBIN,URINE NEGATIVE (NEGATIVE); BLOOD/HEMOGLOBIN,URINE NEGATIVE (NEGATIVE); GLUCOSE, URINE NEGATIVE (NEGATIVE); KETONES,URINE NEGATIVE (NEGATIVE); LEUKOCYTE ESTERASE ,URINE NEGATIVE (NEGATIVE); NITRITES,URINE NEGATIVE (NEGATIVE); PROTEIN,URINE NEGATIVE (NEGATIVE); UROBILINOGEN,URINE NORMAL (NORMAL)
[2016-09-12] MEDS: VALIUM INJ IM PRN (19:52)
[2016-09-12 19:54] LABS: APPEARANCE,URINE CLEAR (CLEAR); BACTERIA,URINE NEGATIVE /HPF (NEGATIVE); COLOR,URINE YELLOW (YELLOW); RBC,URINE 0-2 /HPF (NEGATIVE); SQUAMOUS EPITHELIAL CELL,UR NEGATIVE /HPF (NEGATIVE)
[2016-09-12] MEDS: FLOMAX PO SCH (22:21)
[2016-09-12] MEDS: ZOCOR TAB 10 MG PO SCH (22:22)
[2016-09-13 04:13] LABS: BASOPHILS # (AUTO) 0.1 X10^3/uL (0.0-0.1); BASOPHILS % (AUTO) 1.2 % (0.2-1.0); EOSINOPHILS # (AUTO) 0.2 x10^3/uL (0.0-0.2); EOSINOPHILS % (AUTO) 3.9 % (0.9-2.9); HEMATOCRIT 39.8 % (42.0-54.0); HEMOGLOBIN 13.8 g/dL (13.5-18.0); LYMPHOCYTES # (AUTO) 1.6 X10^3/uL (1.3-2.9); LYMPHOCYTES % (AUTO) 33.3 % (21.0-51.0); MEAN CORPUSCULAR HEMOGLOBIN 29.4 pg (27.0-34.0); MEAN CORPUSCULAR HGB CONC 34.7 g/dL (33.0-35.0); MEAN CORPUSCULAR VOLUME 84.7 fL (80.0-100.0); MEAN PLATELET VOLUME 8.5 fL (7.4-11.0); MONOCYTES # (AUTO) 0.4 x10^3/uL (0.3-0.8); MONOCYTES % (AUTO) 8.4 % (0.0-13.0); NEUTROPHILS # (AUTO) 2.5 x10^3/uL (2.2-4.8); NEUTROPHILS % (AUTO) 53.2 % (42.0-75.0); PLATELET COUNT 123 X10^3/uL (150.0-450.0); RED BLOOD COUNT 4.69 X10^6/uL (4.7-6.0); RED CELL DISTRIBUTION WIDTH 13.6 % (11.6-16.5); WHITE BLOOD COUNT 4.7 X10^3/uL (3.6-10.0)
[2016-09-13 04:23] LABS: ALANINE AMINOTRANSFERASE 27 Units/L (12-78); ALBUMIN 3.4 g/dL (3.4-5.0); ALKALINE PHOSPHATASE 37 Units/L (46-116); ASPARTATE AMINO TRANSFERASE 25 Units/L (15-37); BLOOD UREA NITROGEN 19 mg/dL (7-18); CALCIUM 8.5 mg/dL (8.5-10.1); CARBON DIOXIDE 31.7 mmol/L (21-32); CHLORIDE 108 mmol/L (98-107); CREATININE 0.95 mg/dL (0.70-1.30); GLUCOSE 81 mg/dL (65-99); SODIUM 144 mmol/L (136-145); TOTAL PROTEIN 6.2 g/dL (6.4-8.2); eGFR BLACK RACES > 60 (>60); eGFR NON BLACK RACES > 60 (>60)
[2016-09-13] MEDS: NS 1000 ML 1,000 ML IV SCH ×2 (07:33→13:44)
[2016-09-13] MEDS ORDERED: LISINOPRIL 40 MG PO SCH (09:00)
[2016-09-13] MEDS: ASPIRIN EC 81 MG PO SCH (09:00)
[2016-09-13] MEDS: ZESTRIL TAB 40 MG PO SCH (09:00)
[2016-09-13 09:58] LABS: CKMB % 1.4 % (<4); CREATINE KINASE 71 Units/L (39-308); TROPONIN I < 0.02 ng/mL (0-1.5)
[2016-09-13] MEDS: VALIUM INJ IM PRN ×2 (11:13→19:33)
--- NOTE | 2016-09-13 12:57 | MRI ---
HISTORY: Altered mental status, history of CVA. Study: MRI brain without contrast. Comparison: CT head dated September 12, 2016. Technique: Multiplanar multi-sequence MRI of the brain was obtained utilizing standard departmental protocol. Sagittal and axial T1 weighted images were obtained. Axial T2 and flair weighted images were performed as well. Axial diffusion weighted and ADC trace mapping was performed. Findings: Age related cortical atrophy and chronic small vessel ischemic changes. The midline structures appea r unremarkable. The evaluation of the brain parenchyma demonstrates no abnormal signal characterist ics to suggest intraparenchymal mass or hemorrhage. No extra-axial fluid collections are observed. The ventricular system appears symmetric and nondilated. The CP angle is normal in its appearance without brainstem mass or evidence for acoustic neuroma. The flow voids on both T1 and T2 weighted imaging appear unremarkable. Evaluation of the diffusion weighted imaging does not demonstrate abn ormal signal characteristics to suggest acute ischemic change. The extracranial structures are unre markable. IMPRESSION: 1. Unremarkable MRI of the brain without contrast. Reported By:
--- NOTE | 2016-09-13 13:56 | DR.H&P ---
H&P - History & Physical for Day of: H&P Date: 09/12/16 - Chief Complaint Chief Complaint: CONFUSION - Allergies Allergies/Adverse Reactions: Allergies Allergy/AdvReac Type Severity Reaction Status Date / Time codeine Allergy Verified 09/12/16 09:13 hydroxyzine [From Vistaril] AdvReac Verified 09/12/16 17:58 - History of Present Illness History of Present Illness: 75 WM ADMITTED FROM ER WITH AMS. FAMILY STATES PT VERY CONFUSED, TALKING OUT OF HIS HEAD SAYING "BABABABA & DADADAD" PT HAS HX OLD CVA, HTN, HYPERLIPIDEMIA. PLAN TO ADMIT FOR R/O ACUTE CVA, CT IN ED, THEN MRI Q AM. BP AND LIPID CONTROL. CARDIAC ENZYMES - Past Medical History Past Medical History: Arthritis, Dementia, GERD, Hypertension - Past Surgical History Surgical History: Appendectomy, Cholecystectomy, Ortho Surgery - Family History Family Medical History: [place] - Social History Does patient currently use any type of tobacco product: No Have you used tobacco products in the last 12 months: No Type of Tobacco Use: None Does any household member use tobacco: No Alcohol Use: None Drug Use: None - Medications Home Medications: Gi Cocktail [Levsin/Maalox/Lidoc Visc] 30 ml PO QID PRN 09/12/16 [History Confirmed 09/12/16] - Review of Systems Constitutional: Weakness Eyes: No Symptoms Reported ENT: No Symptoms Reported Respiratory: No Symptoms Reported Cardiovascular: No Symptoms Reported Gastrointestinal: No Symptoms Reported Genitourinary: No Symptoms Reported Musculoskeletal: No Symptoms Reported Skin: No Symptoms Reported Neurological: Confusion - Physical Exam Vital Signs: Temperature 98.1 F Pulse Rate [Right Brachial] 54 Respiratory Rate 18 Blood Pressure [Left Arm] 143/66 Blood Pressure [Right Arm] 162/70 O2 Sat by Pulse Oximetry 99 Oriented: Normal Eyes: Normal Ear: Normal Nose: Normal Throat: Normal Respiratory: RLL Diminished, LLL Diminished Tenderness: Epigastric Skin: Decreased [place] Musculoskeletal: Motor Deficit (BILATERAL LOWER EXTREMITY WEAKNESS) Psychiatric: Anxiety - Assessment/Plan (1) Generalized weakness Status: Acute Plan: ADMIT, R/O ACUTE CVA. CARDIAC ENZYMES. CBC CMP UC. CXR. RESUME HOME MEDS, MONITOR (2) Hyperlipidemia Qualifiers: Hyperlipidemia type: H Status: Acute (3) Hypertension Qualifiers: Hypertension type: H Status: Acute (4) Mental status alteration Qualifiers: Altered mental status type: transient alteration of awareness Coma depth: C Coma timing: C Qualified Code(s): R40.4 - Transient alteration of awareness Status: Acute
--- NOTE | 2016-09-13 14:02 | PCM.PROG ---
Progress Note - Progress Note for Day of Date: 09/13/16 - Subjective Subjective: 75 WM ADMITTED ONE DAY AGO WITH AMS, PT HAD CT IN ED WITHOUT ACUTE FINDINGS. PLAN TO OBTAIN MRI BRAIN THIS AM, CONTINUE CARDIAC MONITORING. BP AND LIPID CONTROL, PT IS SEVERELY HARD OF HEARING AFFECTING COMMUNICATION. PT FAMILY STATES MR KUMAR HAS CO PAIN, BUT CANNOT LOCALIZE - Past Medical Family Social History Past Med/Fam/Surg Hx: No changes since H&P Allergies: Allergies codeine Allergy (Verified 09/12/16 09:13) hydroxyzine [From Vistaril] Adverse Reaction (Verified 09/12/16 17:58) - Review of Systems ROS: No change since H&P - Vital Signs and I&O's Vital Signs: Temperature 98.1 F Pulse Rate [Right Brachial] 54 Respiratory Rate 18 Blood Pressure [Left Arm] 143/66 Blood Pressure [Right Arm] 162/70 O2 Sat by Pulse Oximetry 99 Intake and Output: Intake & Output 09/11/16 09/12/16 09/13/16 09/14/16 11:59 11:59 11:59 11:59 Intake Total 565 Balance 565 - Physical Exam Oriented: Normal Eyes: Normal Ear: Normal Nose: Normal Throat: Normal Respiratory: Diminished Cardiovascular: Normal Tenderness: Epigastric Skin: Decreased [place]ur Musculoskeletal: Motor Deficit (BILATERAL LOWER EXTREMITY WEAKNESS) Psychiatric: Anxiety Speech Pattern: Clear - Laboratory and Diagnostics Result Diagrams: 09/13/16 02:55 09/13/16 02:55 Labs: 09/12/16 19:37 Urine,Clean Catch Urine Culture - Preliminary Laboratory WBC 4.7 X10^3/uL (3.6-10.0) 09/13/16 02:55 RBC 4.69 X10^6/uL (4.7-6.0) L 09/13/16 02:55 Hgb 13.8 g/dL (13.5-18.0) 09/13/16 02:55 Hct 39.8 % (42.0-54.0) L 09/13/16 02:55 MCV 84.7 fL (80.0-100.0) 09/13/16 02:55 MCH 29.4 pg (27.0-34.0) 09/13/16 02:55 MCHC 34.7 g/dL (33.0-35.0) 09/13/16 02:55 RDW 13.6 % (11.6-16.5) 09/13/16 02:55 Plt Count 123 X10^3/uL (150.0-450.0) L 09/13/16 02:55 MPV 8.5 fL (7.4-11.0) 09/13/16 02:55 Neut % 53.2 % (42.0-75.0) 09/13/16 02:55 Lymph % 33.3 % (21.0-51.0) 09/13/16 02:55 [place] % 8.4 % (0.0-13.0) 09/13/16 02:55 Eos % 3.9 % (0.9-2.9) H 09/13/16 02:55 Baso % 1.2 % (0.2-1.0) H 09/13/16 02:55 Neut # 2.5 x10^3/uL (2.2-4.8) 09/13/16 02:55 Lymph # 1.6 X10^3/uL (1.3-2.9) 09/13/16 02:55 [place] # 0.4 x10^3/uL (0.3-0.8) 09/13/16 02:55 Eos # 0.2 x10^3/uL (0.0-0.2) 09/13/16 02:55 Baso # 0.1 X10^3/uL (0.0-0.1) 09/13/16 02:55 Absolute Nucleated RBC 0.1 /100WBC 09/13/16 02:55 INR Target Range - 09/12/16 08:28 INR 1.03 (0.8-1.3) 09/12/16 08:28 PTT 31.0 SECONDS (22.9-36.5) 09/12/16 08:28 PTT Comment - 09/12/16 08:28 D-Dimer 228 ng/mL (0-400) 09/12/16 08:28 Sodium 144 mmol/L (136-145) 09/13/16 02:55 Corrected Sodium TNP 09/13/16 02:55 Potassium 3.5 mmol/L (3.5-5.1) 09/13/16 02:55 Chloride 108 mmol/L (98-107) H 09/13/16 02:55 Carbon Dioxide 31.7 mmol/L (21-32) 09/13/16 02:55 BUN 19 mg/dL (7-18) H 09/13/16 02:55 Creatinine 0.95 mg/dL (0.70-1.30) 09/13/16 02:55 Est GFR (MDRD) Af Amer > 60 (>60) 09/13/16 02:55 Est GFR (MDRD) Non-Af > 60 (>60) 09/13/16 02:55 Glucose 81 mg/dL (65-99) 09/13/16 02:55 Calcium 8.5 mg/dL (8.5-10.1) 09/13/16 02:55 Corrected Calcium TNP 09/13/16 02:55 Total Bilirubin 0.70 mg/dL (0.2-1.0) 09/13/16 02:55 AST 25 Units/L (15-37) 09/13/16 02:55 ALT 27 Units/L (12-78) 09/13/16 02:55 Alkaline Phosphatase 37 Units/L (46-116) L 09/13/16 02:55 Creatine Kinase 71 Units/L (39-308) 09/13/16 09:10 CK-MB (CK-2) 1.0 ng/mL (0-4.0) 09/13/16 09:10 CK/CKMB % Calc 1.4 % (<4) 09/13/16 09:10 Troponin I < 0.02 ng/mL (0-1.5) 09/13/16 09:10 Total Protein 6.2 g/dL (6.4-8.2) L 09/13/16 02:55 Albumin 3.4 g/dL (3.4-5.0) 09/13/16 02:55 Globulin 2.8 g/dL (2.5-4.5) 09/13/16 02:55 Albumin/Globulin Ratio 1.2 Ratio (1.1-2.1) 09/13/16 02:55 Specimen Type Clean catch urine 09/12/16 19:37 Urine Color Yellow (YELLOW) 09/12/16 19:37 Urine Appearance Clear (CLEAR) 09/12/16 19:37 Urine pH 8.0 (5.0 - 8.0) 09/12/16 19:37 Ur Specific [place] 1.015 (1.000-1.030) 09/12/16 19:37 Urine Protein Negative (NEGATIVE) 09/12/16 19:37 Urine Glucose (UA) Negative (NEGATIVE) 09/12/16 19:37 Urine Ketones Negative (NEGATIVE) 09/12/16 19:37 Urine Occult Blood Negative (NEGATIVE) 09/12/16 19:37 Urine Nitrite Negative (NEGATIVE) 09/12/16 19:37 Urine Bilirubin Negative (NEGATIVE) 09/12/16 19:37 Urine Urobilinogen Normal (NORMAL) 09/12/16 19:37 Ur Leukocyte Esterase Negative (NEGATIVE) 09/12/16 19:37 Urine RBC 0-2 /HPF (NEGATIVE) 09/12/16 19:37 Urine WBC 0-2 /HPF (NEGATIVE) 09/12/16 19:37 Ur Squamous Epith Cells Negative /HPF (NEGATIVE) 09/12/16 19:37 Amorphous Sediment 2+ /HPF (NEGATIVE) 09/12/16 09:17 Urine Bacteria Negative /HPF (NEGATIVE) 09/12/16 19:37 Urine Mucus Few /HPF (NEGATIVE) 09/12/16 09:17 Ur Culture Indicated? Yes/culture set up 09/12/16 19:37 - Plan (1) Generalized weakness Status: Acute Plan: R/O ACUTE CVA, MRI THIS AM. CARDIAC ENZYMES STABLE. REPEAT CBC CMP UC PENDING. CXR. RESUME HOME MEDS, MONITOR (2) Hyperlipidemia Status: Acute Qualifiers: Hyperlipidemia type: H (3) Hypertension Status: Acute Qualifiers: Hypertension type: H (4) Mental status alteration Status: Acute Qualifiers: Altered mental status type: transient alteration of awareness Coma depth: C Coma timing: C Qualified Code(s): R40.4 - Transient alteration of awareness Plan: IMPROVING
[2016-09-13 14:32] LABS: FREE T4 (FREE THYROXINE) 1.08 ng/dL (0.76-1.46); TSH (3RD GENERATION) 0.783 uIU/mL (0.358-3.74)
[2016-09-13 14:37] LABS: HEMOGLOBIN A1C 5.7 % (4.5-6.2)
[2016-09-13 14:57] LABS: CKMB % 1.5 % (<4); CREATINE KINASE 76 Units/L (39-308); CREATINE KINASE MB 1.1 ng/mL (0-4.0); TROPONIN I < 0.02 ng/mL (0-1.5)
[2016-09-13] MEDS: FLOMAX PO SCH (20:50)
[2016-09-13] MEDS: ZOCOR TAB 10 MG PO SCH (20:50)
[2016-09-13 21:14] LABS: CKMB % 1.5 % (<4); CREATINE KINASE 68 Units/L (39-308); TROPONIN I < 0.02 ng/mL (0-1.5)
[2016-09-14] MEDS: NS 1000 ML 1,000 ML IV SCH (02:08)
[2016-09-14 06:13] LABS: BASOPHILS # (AUTO) 0.1 X10^3/uL (0.0-0.1); BASOPHILS % (AUTO) 1.1 % (0.2-1.0); EOSINOPHILS # (AUTO) 0.2 x10^3/uL (0.0-0.2); EOSINOPHILS % (AUTO) 3.4 % (0.9-2.9); HEMATOCRIT 37.2 % (42.0-54.0); HEMOGLOBIN 13.2 g/dL (13.5-18.0); LYMPHOCYTES # (AUTO) 1.3 X10^3/uL (1.3-2.9); LYMPHOCYTES % (AUTO) 23.9 % (21.0-51.0); MEAN CORPUSCULAR HEMOGLOBIN 29.8 pg (27.0-34.0); MEAN CORPUSCULAR HGB CONC 35.4 g/dL (33.0-35.0); MEAN CORPUSCULAR VOLUME 84.1 fL (80.0-100.0); MEAN PLATELET VOLUME 8.8 fL (7.4-11.0); MONOCYTES # (AUTO) 0.5 x10^3/uL (0.3-0.8); MONOCYTES % (AUTO) 9.4 % (0.0-13.0); NEUTROPHILS # (AUTO) 3.5 x10^3/uL (2.2-4.8); NEUTROPHILS % (AUTO) 62.2 % (42.0-75.0); PLATELET COUNT 121 X10^3/uL (150.0-450.0); RED BLOOD COUNT 4.42 X10^6/uL (4.7-6.0); RED CELL DISTRIBUTION WIDTH 13.8 % (11.6-16.5); WHITE BLOOD COUNT 5.6 X10^3/uL (3.6-10.0)
[2016-09-14 06:21] LABS: ALANINE AMINOTRANSFERASE 26 Units/L (12-78); ALKALINE PHOSPHATASE 35 Units/L (46-116); ASPARTATE AMINO TRANSFERASE 22 Units/L (15-37); BLOOD UREA NITROGEN 33 mg/dL (7-18); CALCIUM 8.2 mg/dL (8.5-10.1); CARBON DIOXIDE 28.5 mmol/L (21-32); CHLORIDE 111 mmol/L (98-107); CHOL/HDL RATIO 2.6 (0.0-5.0); CHOLESTEROL 167 mg/dL (0-200); COR NA(FOR HYPERGLY) 147 mmol/L (136-145); CREATININE 0.99 mg/dL (0.70-1.30); GLUCOSE 124 mg/dL (65-99); HDL CHOLESTEROL 65 mg/dL (40-60); SODIUM 146 mmol/L (136-145); TOTAL PROTEIN 5.8 g/dL (6.4-8.2); TRIGLYCERIDES 30 mg/dL (0-150); eGFR BLACK RACES > 60 (>60); eGFR NON BLACK RACES > 60 (>60)
[2016-09-14] MEDS: ASPIRIN EC 81 MG PO SCH (08:35)
[2016-09-14] MEDS: ZESTRIL TAB 40 MG PO SCH (08:35)
[2016-09-14 10:38] VITALS: BP 152/73
== END 2016-09-14 11:35 | disposition home health service (06) ==
LOC: ER 08:12 → MED/SURG 10:25 → OBS 10:25
PROVIDERS: ADMIT Internal Medicine; ATTEND Internal Medicine
DX: R40.4 Transient alteration of awareness (principal); R53.1 Weakness; R06.02 Shortness of breath; M13.89 Other specified arthritis, multiple sites; K21.9 Gastro-esophageal reflux disease without esophagitis; I10 Essential (primary) hypertension; I25.2 Old myocardial infarction; E78.2 Mixed hyperlipidemia; E11.9 Type 2 diabetes mellitus without complications; R47.89 Other speech disturbances
CPT/HCPCS: 36415; 70450; 70551; 71010; 80053; 80061; 81001; 82550; 82553; 83036; 84439; 84443; 84484; 85025; 85378; 85610; 85730; 87086; 93005; 93010; 94760; 96365; 99284; A4222; G0378; J3360

== ENCOUNTER 2017-01-11 13:32 | Inpatient (IN) | payer OTHER ==
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
[2017-01-11] MEDS ORDERED: NS 1000 ML 1,000 ML IV SCH (19:00)
[2017-01-11] MEDS ORDERED: TOVIAZ PO SCH (21:00)
[2017-01-11 21:14] LABS: BASOPHILS # (AUTO) 0.1 X10^3/uL (0.0-0.1); EOSINOPHILS # (AUTO) 0.1 x10^3/uL (0.0-0.2); EOSINOPHILS % (AUTO) 2.1 % (0.9-2.9); LYMPHOCYTES # (AUTO) 1.6 X10^3/uL (1.3-2.9); LYMPHOCYTES % (AUTO) 22.9 % (21.0-51.0); MEAN CORPUSCULAR HEMOGLOBIN 29.1 pg (27.0-34.0); MEAN CORPUSCULAR HGB CONC 34.2 g/dL (33.0-35.0); MEAN PLATELET VOLUME 8.1 fL (7.4-11.0); MONOCYTES # (AUTO) 0.5 x10^3/uL (0.3-0.8); NEUTROPHILS # (AUTO) 4.6 x10^3/uL (2.2-4.8); PLATELET COUNT 156 X10^3/uL (150.0-450.0); RED BLOOD COUNT 4.83 X10^6/uL (4.7-6.0); RED CELL DISTRIBUTION WIDTH 14.1 % (11.6-16.5); WHITE BLOOD COUNT 6.9 X10^3/uL (3.6-10.0)
[2017-01-11 21:25] LABS: ALANINE AMINOTRANSFERASE 29 Units/L (12-78); ALBUMIN 3.6 g/dL (3.4-5.0); ALKALINE PHOSPHATASE 55 Units/L (46-116); ASPARTATE AMINO TRANSFERASE 24 Units/L (15-37); BLOOD UREA NITROGEN 31 mg/dL (7-18); CALCIUM 8.7 mg/dL (8.5-10.1); CARBON DIOXIDE 32.1 mmol/L (21-32); CHLORIDE 109 mmol/L (98-107); COR NA(FOR HYPERGLY) 147 mmol/L (136-145); CREATININE 1.04 mg/dL (0.70-1.30); SODIUM 147 mmol/L (136-145); TOTAL PROTEIN 6.4 g/dL (6.4-8.2); eGFR BLACK RACES > 60 (>60); eGFR NON BLACK RACES > 60 (>60)
[2017-01-11] MEDS ORDERED: XANAX PO SCH (22:00)
[2017-01-11 22:04] VITALS: BMI 24.5
--- NOTE | 2017-01-11 22:57 | RAD ---
Chest, AP portable Indication: Altered mental status Comparison: 09/12/2016 Findings: The heart size is normal. The lungs are clear without focal infiltrate or pleural effusion. Impression: No acute chest process or significant change from prior. Reported By:
[2017-01-11] MEDS ORDERED: LEVSIN/MAALOX/LIDOC VISC PO PRN (23:21)
[2017-01-11] MEDS ORDERED: HALDOL INJ IM ONE (23:33)
[2017-01-12 00:31] LABS: BILIRUBIN,URINE NEGATIVE (NEGATIVE); BLOOD/HEMOGLOBIN,URINE NEGATIVE (NEGATIVE); GLUCOSE, URINE NEGATIVE (NEGATIVE); KETONES,URINE NEGATIVE (NEGATIVE); LEUKOCYTE ESTERASE ,URINE NEGATIVE (NEGATIVE); NITRITES,URINE NEGATIVE (NEGATIVE); PH,URINE 6.5 (5.0 - 8.0); PROTEIN,URINE NEGATIVE (NEGATIVE); UROBILINOGEN,URINE NORMAL (NORMAL)
[2017-01-12 00:38] LABS: APPEARANCE,URINE CLEAR (CLEAR); COLOR,URINE YELLOW (YELLOW); RBC,URINE NONE SEEN /HPF (NEGATIVE)
[2017-01-12 00:39] LABS: BACTERIA,URINE NEGATIVE /HPF (NEGATIVE); SQUAMOUS EPITHELIAL CELL,UR RARE /HPF (NEGATIVE)
[2017-01-12] MEDS: XANAX PO SCH ×3 (05:46→22:00)
--- NOTE | 2017-01-12 05:50 | CT ---
CT head without contrast Indication: Dementia Comparison: 09/12/2016 Technique: CT images of the head were obtained without contrast. Automatic exposure control was utili [place]. Findings: Images through the upper brain were degraded by motion. There is moderate generalized brain atrophy with concomitant ventricular and sulcal enlargement, similar to prior. There is re-demonstra tion of the confluent periventricular and deep white matter hypoattenuation, most suggestive for shane ed microangiopathy. There are old lacunar infarcts of the bilateral thalami, basal ganglia, luong ra diata, and left centrum semiovale. There is a new 9 mm hyperdensity within the anterior left thalamus (axial image 13), without evidence for significant mass or perilesional edema. No abnormal extra-axi al collection. No significant skeletal abnormality. The visualized paranasal sinuses and mastoid air cells are clear. Impression: New 9 mm hyperdensity within the left thalamus. Considerations include small parenchymal bleed or hyperdense lesion. Recommend MRI of the brain for further evaluation. Marked chronic microangiopathy. Moderate atrophy. THE AVAILABILITY OF THE REPORT AND FINDINGS WERE COMMUNICATED TO the patient's nurse Patsy Wiley BY Dr. Hammond ON 01/12/2017 AT 5:45 a.m. Reported By:
[2017-01-12] MEDS: ZESTRIL TAB 40 MG PO SCH (08:25)
[2017-01-12] MEDS ORDERED: LISINOPRIL 40 MG PO SCH (09:00)
[2017-01-12] MEDS ORDERED: ASPIRIN EC 81 MG PO SCH ×2 (09:00)
[2017-01-12] MEDS ORDERED: XANAX PO ONE (10:48)
--- NOTE | 2017-01-12 16:10 | MRI ---
STUDY: MRI OF THE BRAIN WITHOUT GADOLINIUM HISTORY: Patient very combative. Altered mental status. 9 mm hyperdensity within the left thalamus. Technique: Multiplanar multi-sequence MRI of the brain was obtained utilizing standard departmental p rotocol. Sagittal and axial T1, axial T2, FLAIR, diffusion (DWI/ADC) is images through the brain were performed. Comparison: Head CT dated January 11, 2017. Findings: There is image degradation due to patient motion. The sulci, cisterns and ventricles are prominent consistent with diffuse volume loss. There are confl uent and scattered foci of T2 prolongation in the periventricular and subcortical white matter of bot h hemispheres. This is a nonspecific finding which likely represents microangiopathic change in a pat ient of this age. There is a small focus of restricted diffusion adjacent to the 3rd ventricle, likel y within the hypothalamus. There is mild local mass effect upon the lateral margin of the 3rd ventric le. This focus is hyperintense on T1 and T2 weighted images, and demonstrates a thin rim of surroundi ng decreased signal. 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 There is no evidence of acute territorial infarction, mass, or significant midline shift. There are n o abnormal intra-axial or extra-axial fluid collections. The major intracranial vascular flow voids appear intact. The left vertebral artery appears dominant. There is bilateral aphakia. IMPRESSION: 1. Small focal hemorrhage in the region of the left hypothalamus, with local mass effect upon the 3r d ventricle. 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 2. Nonspecific white matter change and volume loss. Reported By:
[2017-01-12] MEDS: TOVIAZ PO SCH (20:48)
[2017-01-13] MEDS: XANAX PO SCH ×3 (05:20→21:00)
[2017-01-13] MEDS: NS 1/2 1000 ML IV 1,000 ML IV SCH (05:57)
[2017-01-13 07:54] LABS: BASOPHILS # (AUTO) 0.1 X10^3/uL (0.0-0.1); BASOPHILS % (AUTO) 0.8 % (0.2-1.0); EOSINOPHILS # (AUTO) 0.1 x10^3/uL (0.0-0.2); EOSINOPHILS % (AUTO) 2.2 % (0.9-2.9); HEMATOCRIT 40.7 % (42.0-54.0); HEMOGLOBIN 14.3 g/dL (13.5-18.0); LYMPHOCYTES # (AUTO) 1.2 X10^3/uL (1.3-2.9); MEAN CORPUSCULAR HEMOGLOBIN 29.5 pg (27.0-34.0); MEAN CORPUSCULAR HGB CONC 35.1 g/dL (33.0-35.0); MEAN CORPUSCULAR VOLUME 84.1 fL (80.0-100.0); MONOCYTES # (AUTO) 0.4 x10^3/uL (0.3-0.8); MONOCYTES % (AUTO) 6.4 % (0.0-13.0); NEUTROPHILS # (AUTO) 4.9 x10^3/uL (2.2-4.8); NEUTROPHILS % (AUTO) 72.6 % (42.0-75.0); PLATELET COUNT 150 X10^3/uL (150.0-450.0); RED BLOOD COUNT 4.84 X10^6/uL (4.7-6.0); RED CELL DISTRIBUTION WIDTH 13.8 % (11.6-16.5); WHITE BLOOD COUNT 6.7 X10^3/uL (3.6-10.0)
[2017-01-13 08:04] LABS: ALANINE AMINOTRANSFERASE 28 Units/L (12-78); ALBUMIN 3.6 g/dL (3.4-5.0); ALKALINE PHOSPHATASE 61 Units/L (46-116); ASPARTATE AMINO TRANSFERASE 28 Units/L (15-37); BLOOD UREA NITROGEN 22 mg/dL (7-18); CALCIUM 9.1 mg/dL (8.5-10.1); CARBON DIOXIDE 27.4 mmol/L (21-32); CHLORIDE 107 mmol/L (98-107); CREATININE 0.97 mg/dL (0.70-1.30); SODIUM 143 mmol/L (136-145); TOTAL PROTEIN 6.6 g/dL (6.4-8.2); eGFR BLACK RACES > 60 (>60); eGFR NON BLACK RACES > 60 (>60)
[2017-01-13] MEDS: ZESTRIL TAB 40 MG PO SCH (11:18)
[2017-01-13] MEDS ORDERED: CATAPRES-TTS-2 TD SCH (14:00)
[2017-01-13] MEDS: TOVIAZ PO SCH (20:16)
--- NOTE | 2017-01-14 00:20 | PCM.PROG ---
Progress Note - Progress Note for Day of Date: 01/13/17 - Subjective Subjective: WAS ADMITTED FOR ALTERED MENTAL STATUS. HE IS A PATIENT OF . BRAIN CT REPORTED NEW 9MM HYPERDENISTY WITHIN THE LEFT THALAMUS. A BRAIN MRI WAS OBTAINED AND REPORTED SMALL FOCAL HEMORRHAGE IN THE REGION OF THE LEFT HYPOTHALAMUS, WITH LOCAL MASS EFFECT UPON THE 3RD VENTRICLE. 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 TODAY, PATIENT IS LYING IN BED ON MORNING ROUNDS. FAMILY AT BEDSIDE. PATIENTS SON REPORTS THAT PATIENT CONTINUES WITH CONFUSION AND CONTINUES TO BE COMBATIVE AT TIMES. ON EXAMINATION , PUPILS PERRA. HEART IS NORMAL IN RATE AND RHYTHM. LUNGS SOUNDS ARE CLEAR THROUGHOUT. ABDOMEN IS FLAT, SOFT, AND NON-TENDER WITH NORMAL BOWEL SOUNDS NOTED IN ALL QUADRANTS. PATIENT IS UNABLE TO FOLLOW SIMPLE COMMANDS AND DOES NOT ANSWER QUESTIONS APPROPRIATELY. HIS BLOOD PRESSURE REMAINS ELEVATED THIS MORNNG AT 177/81. HE IS HEMODYNAMICALLY STABLE TODAY. WE DISCUSSED FINDINGS OF MRI WITH PATIENTS SON. WE DISCUSSED CHANGES IN MEDICATIONS THAT WE WILL MAKE. TODAY, WE PLAN TO DISCONTINUE RISPERIDONE AND START ZYPREXA 2.5MG BID AND CLONIDINE 0.2MG TD PATCH. OTHERWISE, WE WILL CONTINUE CURRENT PLAN OF CARE. WE PLAN TO FOLLOW UP WITH AM LABS AND CONTINUE TO MONITOR PATIENT. - Past Medical Family Social History Past Med/Fam/Surg Hx: No changes since H&P Allergies: Allergies codeine Allergy (Verified 09/12/16 09:13) hydroxyzine [From Vistaril] Adverse Reaction (Verified 09/12/16 17:58) - Review of Systems ROS: No change since H&P - Vital Signs and I&O's Vital Signs: Temperature 98 F Pulse Rate [Right Brachial] 66 Respiratory Rate 18 Blood Pressure [Left Arm] 174/79 Blood Pressure [Right Arm] 146/74 Blood Pressure 152/73 O2 Sat by Pulse Oximetry 98 Intake and Output: Intake & Output 01/11/17 01/12/17 01/13/17 01/14/17 11:59 11:59 11:59 11:59 Intake Total 322 463 2927 Output Total 0 Balance 349 849 1677 - Physical Exam Oriented: Person Eyes: Normal Ear: Normal Nose: Normal Throat: Normal Respiratory: Normal Cardiovascular: Normal : Normal Auscultation: Bowel Sounds: Normal Palpation: Normal Tenderness: Normal Skin: Normal Musculoskeletal: Normal Psychiatric: Other (Restless, CONFUSION ) Mood Description: Anxious Affect: Flat Speech Pattern: Clear, Inappropriate - Laboratory and Diagnostics Result Diagrams: 01/13/17 07:35 01/13/17 07:35 Labs: 01/11/17 00:03 Urine,Clean Catch Urine Culture - Final 01/11/17 20:43 Blood Blood Culture - Preliminary 01/11/17 20:37 Blood Blood Culture - Preliminary Laboratory WBC 6.7 X10^3/uL (3.6-10.0) 01/13/17 07:35 RBC 4.84 X10^6/uL (4.7-6.0) 01/13/17 07:35 Hgb 14.3 g/dL (13.5-18.0) 01/13/17 07:35 Hct 40.7 % (42.0-54.0) L 01/13/17 07:35 MCV 84.1 fL (80.0-100.0) 01/13/17 07:35 MCH 29.5 pg (27.0-34.0) 01/13/17 07:35 MCHC 35.1 g/dL (33.0-35.0) H 01/13/17 07:35 RDW 13.8 % (11.6-16.5) 01/13/17 07:35 Plt Count 150 X10^3/uL (150.0-450.0) 01/13/17 07:35 MPV 8.0 fL (7.4-11.0) 01/13/17 07:35 Neut % 72.6 % (42.0-75.0) 01/13/17 07:35 Lymph % 18.0 % (21.0-51.0) L 01/13/17 07:35 [place] % 6.4 % (0.0-13.0) 01/13/17 07:35 Eos % 2.2 % (0.9-2.9) 01/13/17 07:35 Baso % 0.8 % (0.2-1.0) 01/13/17 07:35 Neut # 4.9 x10^3/uL (2.2-4.8) H 01/13/17 07:35 Lymph # 1.2 X10^3/uL (1.3-2.9) L 01/13/17 07:35 [place] # 0.4 x10^3/uL (0.3-0.8) 01/13/17 07:35 Eos # 0.1 x10^3/uL (0.0-0.2) 01/13/17 07:35 Baso # 0.1 X10^3/uL (0.0-0.1) 01/13/17 07:35 Absolute Nucleated RBC 0.0 /100WBC 01/13/17 07:35 Sodium 143 mmol/L (136-145) 01/13/17 07:35 Corrected Sodium TNP 01/13/17 07:35 Potassium 3.5 mmol/L (3.5-5.1) 01/13/17 07:35 Chloride 107 mmol/L (98-107) 01/13/17 07:35 Carbon Dioxide 27.4 mmol/L (21-32) 01/13/17 07:35 BUN 22 mg/dL (7-18) H 01/13/17 07:35 Creatinine 0.97 mg/dL (0.70-1.30) 01/13/17 07:35 Est GFR (MDRD) Af Amer > 60 (>60) 01/13/17 07:35 Est GFR (MDRD) Non-Af > 60 (>60) 01/13/17 07:35 Glucose 109 mg/dL (65-99) H 01/13/17 07:35 Calcium 9.1 mg/dL (8.5-10.1) 01/13/17 07:35 Corrected Calcium TNP 01/13/17 07:35 Total Bilirubin 0.70 mg/dL (0.2-1.0) 01/13/17 07:35 AST 28 Units/L (15-37) 01/13/17 07:35 ALT 28 Units/L (12-78) 01/13/17 07:35 Alkaline Phosphatase 61 Units/L (46-116) 01/13/17 07:35 Total Protein 6.6 g/dL (6.4-8.2) 01/13/17 07:35 Albumin 3.6 g/dL (3.4-5.0) 01/13/17 07:35 Globulin 3.0 g/dL (2.5-4.5) 01/13/17 07:35 Albumin/Globulin Ratio 1.2 Ratio (1.1-2.1) 01/13/17 07:35 Specimen Type Clean catch urine 01/11/17 00:03 Urine Color Yellow (YELLOW) 01/11/17 00:03 Urine Appearance Clear (CLEAR) 01/11/17 00:03 Urine pH 6.5 (5.0 - 8.0) 01/11/17 00:03 [address] [place] 1.020 (1.000-1.030) 01/11/17 00:03 Urine Protein Negative (NEGATIVE) 01/11/17 00:03 Urine Glucose (UA) Negative (NEGATIVE) 01/11/17 00:03 Urine Ketones Negative (NEGATIVE) 01/11/17 00:03 Urine Occult Blood Negative (NEGATIVE) 01/11/17 00:03 Urine Nitrite Negative (NEGATIVE) 01/11/17 00:03 Urine Bilirubin Negative (NEGATIVE) 01/11/17 00:03 Urine Urobilinogen Normal (NORMAL) 01/11/17 00:03 Ur Leukocyte Esterase Negative (NEGATIVE) 01/11/17 00:03 Urine RBC None seen /HPF (NEGATIVE) 01/11/17 00:03 Urine WBC 0-2 /HPF (NEGATIVE) 01/11/17 00:03 Ur Squamous Epith Cells Rare /HPF (NEGATIVE) 01/11/17 00:03 Urine Bacteria Negative /HPF (NEGATIVE) 01/11/17 00:03 Ur Culture Indicated? Yes/culture set up 01/11/17 00:03 - Plan (1) Hemorrhagic cerebrovascular accident (CVA) Status: Acute Plan: CATAPRES PATCH 0.2MG TD WEEKLY AND ZESTRIL 40MG PO DAILY FOR BLOOD PRESSURE CONTROL, ZYPREXA 2.5MG PO BID FOR CONFUSION, CONTINUE TO MONITOR
[2017-01-14] MEDS: XANAX PO SCH ×3 (05:49→21:00)
[2017-01-14] MEDS: NS 1/2 1000 ML IV 1,000 ML IV SCH (05:54)
[2017-01-14] MEDS: ZESTRIL TAB 40 MG PO SCH (09:30)
[2017-01-14] MEDS ORDERED: CATAPRES-TTS-3 TD SCH (10:00)
[2017-01-14 10:43] LABS: BASOPHILS # (AUTO) 0.1 X10^3/uL (0.0-0.1); BASOPHILS % (AUTO) 0.5 % (0.2-1.0); EOSINOPHILS # (AUTO) 0.1 x10^3/uL (0.0-0.2); HEMATOCRIT 45.6 % (42.0-54.0); HEMOGLOBIN 15.9 g/dL (13.5-18.0); LYMPHOCYTES # (AUTO) 1.3 X10^3/uL (1.3-2.9); LYMPHOCYTES % (AUTO) 13.3 % (21.0-51.0); MEAN CORPUSCULAR HEMOGLOBIN 29.3 pg (27.0-34.0); MEAN CORPUSCULAR HGB CONC 34.8 g/dL (33.0-35.0); MEAN CORPUSCULAR VOLUME 84.1 fL (80.0-100.0); MEAN PLATELET VOLUME 7.9 fL (7.4-11.0); MONOCYTES # (AUTO) 0.6 x10^3/uL (0.3-0.8); MONOCYTES % (AUTO) 5.8 % (0.0-13.0); NEUTROPHILS # (AUTO) 8.1 x10^3/uL (2.2-4.8); NEUTROPHILS % (AUTO) 79.4 % (42.0-75.0); PLATELET COUNT 174 X10^3/uL (150.0-450.0); RED BLOOD COUNT 5.42 X10^6/uL (4.7-6.0); RED CELL DISTRIBUTION WIDTH 13.9 % (11.6-16.5); WHITE BLOOD COUNT 10.2 X10^3/uL (3.6-10.0)
[2017-01-14 10:50] LABS: ALANINE AMINOTRANSFERASE 29 Units/L (12-78); ALKALINE PHOSPHATASE 71 Units/L (46-116); ASPARTATE AMINO TRANSFERASE 36 Units/L (15-37); BLOOD UREA NITROGEN 19 mg/dL (7-18); CALCIUM 9.2 mg/dL (8.5-10.1); CARBON DIOXIDE 26.9 mmol/L (21-32); CHLORIDE 105 mmol/L (98-107); CREATININE 0.96 mg/dL (0.70-1.30); SODIUM 142 mmol/L (136-145); TOTAL PROTEIN 7.2 g/dL (6.4-8.2); eGFR BLACK RACES > 60 (>60); eGFR NON BLACK RACES > 60 (>60)
[2017-01-14] MEDS: PROCARDIA XL PO SCH (12:14)
[2017-01-14] MEDS: TOVIAZ PO SCH (21:00)
--- NOTE | 2017-01-14 23:55 | PCM.PROG ---
Progress Note - Progress Note for Day of Date: 01/14/17 - Subjective Subjective: WAS ADMITTED FOR ALTERED MENTAL STATUS. HE IS A PATIENT OF . A BRAIN MRI WAS OBTAINED AND REPORTED SMALL FOCAL HEMORRHAGE IN THE REGION OF THE LEFT HYPOTHALAMUS, WITH LOCAL MASS EFFECT UPON THE 3RD VENTRICLE. 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 TODAY, PATIENT IS LYING IN BED ON MORNING ROUNDS. HE AWAKENS AND RESPONDS TO VERBAL STIMULI. FAMILY AT BEDSIDE. PATIENTS SON REPORTS THAT PATIENT HAS RESTED WELL THROUGHOUT THE NIGHT AND THAT THE NEW MEDICATION WE STARTED YESTERDAY SEEMS TO WORK WELL FOR HIM. HE REPORTS DECREASED AGITATION. ON EXAMINATION, HEART IS NORMAL IN RATE AND RHYTHM. LUNGS SOUNDS ARE CLEAR THROUGHOUT. ABDOMEN IS FLAT, SOFT, AND NON-TENDER WITH NORMAL BOWEL SOUNDS NOTED IN ALL QUADRANTS. HE IS HEMODYNAMICALLY STABLE TODAY. HIS BLOOD PRESSURE REMAINS ELEVATED THIS MORNNG DESPITE CHANGES MADE TO MEDICATIONS. VITAL SIGNS THIS MORNING ARE 98.7-73-20-98% -176/82. TODAY, WE WILL INCREASE CATAPRES PATCH TO 0.3MG TD WEEKLY AND START PROCARDIA XL 30MG PO DAILY. WE WILL ORDER A REPEAT BRAIN MRI FOR IN THE MORNING TO REASSESS HEMMORHAGE. OTHERWISE, WE WILL CONTINUE CURRENT PLAN OF CARE. WE PLAN TO FOLLOW UP WITH AM LABS AND CONTINUE TO MONITOR PATIENT. - Past Medical Family Social History Past Med/Fam/Surg Hx: No changes since H&P Allergies: Allergies codeine Allergy (Verified 09/12/16 09:13) hydroxyzine [From Vistaril] Adverse Reaction (Verified 09/12/16 17:58) - Review of Systems ROS: No change since H&P - Vital Signs and I&O's Vital Signs: Temperature 97.7 F Pulse Rate [Left Brachial] 68 Pulse Rate [Right Brachial] 73 Respiratory Rate 20 Blood Pressure [Left Arm] 166/79 Blood Pressure [Right Arm] 146/74 Blood Pressure 152/73 O2 Sat by Pulse Oximetry 97 Intake and Output: Intake & Output 01/12/17 01/13/17 01/14/17 01/15/17 11:59 11:59 11:59 11:59 Intake Total 937 935 2284 320 Output Total 0 Balance 711 872 0204 320 - Physical Exam Oriented: Person Eyes: Normal. negative: Blurred Vision, Diplopia, Discharge, Pain, Redness, Photophobia, Other Ear: Normal. negative: Right, Left, Swelling, Ecchymosis, Hemotypanum, Abrasion , Laceration Nose: Normal. negative: Injected, Discharge, Blood, Other Throat: Normal. negative: Tonsillar Hypertrophy, Red, Exudate, Dry, Other Respiratory: Normal. negative: Right, Left, Generalized, Superior, Inferior, Diminished, Wheezes, Rales, Rhonchi, OTHER Cardiovascular: Normal. negative: Tachycardia, Bradycardia, Irregular, S3, S4, Systolic, Diastolic, Murmur, Edema, Other : Normal. negative: Dysuria, Hematuria, Frequency, Discharge, Testicular Pain , Bleeding, , Other Auscultation: Bowel Sounds: Normal Palpation: Normal Tenderness: Normal Skin: Normal Musculoskeletal: Normal Psychiatric: Normal Mood Description: Calm Affect: Normal Speech Pattern: Clear, Inappropriate - Laboratory and Diagnostics Result Diagrams: 01/14/17 10:12 01/14/17 10:12 Labs: 01/11/17 00:03 Urine,Clean Catch Urine Culture - Final 01/11/17 20:43 Blood Blood Culture - Preliminary 01/11/17 20:37 Blood Blood Culture - Preliminary Laboratory WBC 10.2 X10^3/uL (3.6-10.0) H 01/14/17 10:12 RBC 5.42 X10^6/uL (4.7-6.0) 01/14/17 10:12 Hgb 15.9 g/dL (13.5-18.0) 01/14/17 10:12 Hct 45.6 % (42.0-54.0) 01/14/17 10:12 MCV 84.1 fL (80.0-100.0) 01/14/17 10:12 MCH 29.3 pg (27.0-34.0) 01/14/17 10:12 MCHC 34.8 g/dL (33.0-35.0) 01/14/17 10:12 RDW 13.9 % (11.6-16.5) 01/14/17 10:12 Plt Count 174 X10^3/uL (150.0-450.0) 01/14/17 10:12 MPV 7.9 fL (7.4-11.0) 01/14/17 10:12 Neut % 79.4 % (42.0-75.0) H 01/14/17 10:12 Lymph % 13.3 % (21.0-51.0) L 01/14/17 10:12 [place] % 5.8 % (0.0-13.0) 01/14/17 10:12 Eos % 1.0 % (0.9-2.9) 01/14/17 10:12 Baso % 0.5 % (0.2-1.0) 01/14/17 10:12 Neut # 8.1 x10^3/uL (2.2-4.8) H 01/14/17 10:12 Lymph # 1.3 X10^3/uL (1.3-2.9) 01/14/17 10:12 [place] # 0.6 x10^3/uL (0.3-0.8) 01/14/17 10:12 Eos # 0.1 x10^3/uL (0.0-0.2) 01/14/17 10:12 Baso # 0.1 X10^3/uL (0.0-0.1) 01/14/17 10:12 Absolute Nucleated RBC 0.1 /100WBC 01/14/17 10:12 Sodium 142 mmol/L (136-145) 01/14/17 10:12 Corrected Sodium TNP 01/14/17 10:12 Potassium 3.9 mmol/L (3.5-5.1) 01/14/17 10:12 Chloride 105 mmol/L (98-107) 01/14/17 10:12 Carbon Dioxide 26.9 mmol/L (21-32) 01/14/17 10:12 BUN 19 mg/dL (7-18) H 01/14/17 10:12 Creatinine 0.96 mg/dL (0.70-1.30) 01/14/17 10:12 Est GFR (MDRD) Af Amer > 60 (>60) 01/14/17 10:12 Est GFR (MDRD) Non-Af > 60 (>60) 01/14/17 10:12 Glucose 106 mg/dL (65-99) H 01/14/17 10:12 Calcium 9.2 mg/dL (8.5-10.1) 01/14/17 10:12 Corrected Calcium TNP 01/14/17 10:12 Total Bilirubin 1.10 mg/dL (0.2-1.0) H 01/14/17 10:12 AST 36 Units/L (15-37) 01/14/17 10:12 ALT 29 Units/L (12-78) 01/14/17 10:12 Alkaline Phosphatase 71 Units/L (46-116) 01/14/17 10:12 Total Protein 7.2 g/dL (6.4-8.2) 01/14/17 10:12 Albumin 4.0 g/dL (3.4-5.0) 01/14/17 10:12 Globulin 3.2 g/dL (2.5-4.5) 01/14/17 10:12 Albumin/Globulin Ratio 1.3 Ratio (1.1-2.1) 01/14/17 10:12 Specimen Type Clean catch urine 01/11/17 00:03 Urine Color Yellow (YELLOW) 01/11/17 00:03 Urine Appearance Clear (CLEAR) 01/11/17 00:03 Urine pH 6.5 (5.0 - 8.0) 01/11/17 00:03 Ur Specific [place] 1.020 (1.000-1.030) 01/11/17 00:03 Urine Protein Negative (NEGATIVE) 01/11/17 00:03 Urine Glucose (UA) Negative (NEGATIVE) 01/11/17 00:03 Urine Ketones Negative (NEGATIVE) 01/11/17 00:03 Urine Occult Blood Negative (NEGATIVE) 01/11/17 00:03 Urine Nitrite Negative (NEGATIVE) 01/11/17 00:03 Urine Bilirubin Negative (NEGATIVE) 01/11/17 00:03 Urine Urobilinogen Normal (NORMAL) 01/11/17 00:03 Ur Leukocyte Esterase Negative (NEGATIVE) 01/11/17 00:03 Urine RBC None seen /HPF (NEGATIVE) 01/11/17 00:03 Urine WBC 0-2 /HPF (NEGATIVE) 01/11/17 00:03 Ur Squamous Epith Cells Rare /HPF (NEGATIVE) 01/11/17 00:03 Urine Bacteria Negative /HPF (NEGATIVE) 01/11/17 00:03 Ur Culture Indicated? Yes/culture set up 01/11/17 00:03 - Plan (1) Hemorrhagic cerebrovascular accident (CVA) Status: Acute Plan: REPEAT BRAIN MRI IN AM, CATAPRES PATCH 0.3MG TD WEEKLY, PROCARDIA XL 30MG PO DAILY, AND ZESTRIL 40MG PO DAILY FOR BLOOD PRESSURE CONTROL, ZYPREXA 2.5MG PO BID FOR CONFUSION, CONTINUE TO MONITOR
[2017-01-15] MEDS ORDERED: COLACE CAP 100 MG PO PRN (00:20)
[2017-01-15] MEDS: NS 1/2 1000 ML IV 1,000 ML IV SCH ×2 (01:58→20:13)
[2017-01-15] MEDS: XANAX PO SCH ×3 (07:52→22:05)
[2017-01-15 08:54] LABS: BASOPHILS # (AUTO) 0.1 X10^3/uL (0.0-0.1); BASOPHILS % (AUTO) 0.5 % (0.2-1.0); EOSINOPHILS # (AUTO) 0.1 x10^3/uL (0.0-0.2); EOSINOPHILS % (AUTO) 1.1 % (0.9-2.9); HEMATOCRIT 46.4 % (42.0-54.0); HEMOGLOBIN 16.1 g/dL (13.5-18.0); LYMPHOCYTES # (AUTO) 1.3 X10^3/uL (1.3-2.9); LYMPHOCYTES % (AUTO) 13.1 % (21.0-51.0); MEAN CORPUSCULAR HEMOGLOBIN 29.3 pg (27.0-34.0); MEAN CORPUSCULAR HGB CONC 34.8 g/dL (33.0-35.0); MEAN CORPUSCULAR VOLUME 84.2 fL (80.0-100.0); MEAN PLATELET VOLUME 8.2 fL (7.4-11.0); MONOCYTES # (AUTO) 0.7 x10^3/uL (0.3-0.8); MONOCYTES % (AUTO) 6.8 % (0.0-13.0); NEUTROPHILS # (AUTO) 7.6 x10^3/uL (2.2-4.8); NEUTROPHILS % (AUTO) 78.5 % (42.0-75.0); PLATELET COUNT 180 X10^3/uL (150.0-450.0); RED BLOOD COUNT 5.51 X10^6/uL (4.7-6.0); WHITE BLOOD COUNT 9.7 X10^3/uL (3.6-10.0)
[2017-01-15 09:00] LABS: ALANINE AMINOTRANSFERASE 27 Units/L (12-78); ALBUMIN 3.8 g/dL (3.4-5.0); ALKALINE PHOSPHATASE 66 Units/L (46-116); ASPARTATE AMINO TRANSFERASE 27 Units/L (15-37); BLOOD UREA NITROGEN 27 mg/dL (7-18); CALCIUM 9.1 mg/dL (8.5-10.1); CARBON DIOXIDE 28.1 mmol/L (21-32); CHLORIDE 105 mmol/L (98-107); CREATININE 1.14 mg/dL (0.70-1.30); SODIUM 143 mmol/L (136-145); TOTAL PROTEIN 6.9 g/dL (6.4-8.2); eGFR BLACK RACES > 60 (>60); eGFR NON BLACK RACES > 60 (>60)
[2017-01-15] MEDS ORDERED: MILK OF MAGNESIA PO PRN (09:00)
[2017-01-15] MEDS: ZESTRIL TAB 40 MG PO SCH (10:22)
[2017-01-15] MEDS: PROCARDIA XL PO SCH (10:22)
[2017-01-15] MEDS: MILK OF MAGNESIA PO SCH ×2 (10:22→20:13)
--- NOTE | 2017-01-15 12:42 | MRI ---
MRI Brain without contrast HISTORY: Altered mental status with small intraparenchymal hematoma Comparison: CT dated 01/11/2017 and MRI dated 01/12/2017 Technique: Multiplanar multi-sequence MRI of the brain was obtained utilizing standard departmental p rotocol. Sagittal and axial T1 weighted images were obtained. Axial T2 and flair weighted images we re performed as well. Axial diffusion weighted and ADC trace mapping was performed. Findings: Since previous examination the left hypothalamic hemorrhagic infarct has slightly decreased in the am ount of restricted diffusion with decreased T2 hyperintensity within the area of infarct. There is ag ain peripheral decreased T1 and T2 signal in the area of infarct consistent with methemoglobin. There is no significant vasogenic edema. No mass effect. No new area of restricted diffusion is identified . Bilateral periventricular deep white matter FLAIR and T2 signal hyperintensity along with generaliz ed cerebral atrophy is unchanged. Impression: Since recent prior MRI examination there is slight involution/resorption of small intracranial hemorr mani within the left hypothalamus, again noted is small amount of hemosiderin surrounding the hemorrh agic infarct. On today's examination there is no evidence of new intracranial hemorrhage, mass effect or vasogenic edema surrounding the area of prior hemorrhagic infarct. Again noted is moderate generalized cerebral atrophy with bilateral periventricular and deep white ma tter FLAIR and T2 hyperintensity consistent with chronic microvascular ischemic disease. Reported By:
--- NOTE | 2017-01-15 13:00 | PCM.PROG ---
Progress Note - Progress Note for Day of Date: 01/15/17 - Subjective Subjective: WAS ADMITTED FOR ALTERED MENTAL STATUS. HE IS A PATIENT OF . A BRAIN MRI WAS OBTAINED AND REPORTED SMALL FOCAL HEMORRHAGE IN THE REGION OF THE LEFT HYPOTHALAMUS, WITH LOCAL MASS EFFECT UPON THE 3RD VENTRICLE. IMAGING CHARACTERISTICS ARE CONSISTENT WITH CENTRAL EXTRACELLULAR METHEMOGLOBIN WITH A RIM OF SURROUNDING HEMOSIDERIN DEPOSITION, REPEAT MRI THIS AM SHOWS SLIGHT IMPROVEMENT. TODAY, PATIENT IS LYING IN BED ON MORNING ROUNDS. HE AWAKENS AND RESPONDS TO VERBAL STIMULI. FAMILY AT BEDSIDE. PATIENTS SON REPORTS THAT PATIENT HAS RESTED WELL THROUGHOUT THE NIGHT AND THAT THE NEW MEDICATION WE STARTED YESTERDAY SEEMS TO WORK WELL FOR HIM. HE REPORTS DECREASED AGITATION. ON EXAMINATION, HEART IS NORMAL IN RATE AND RHYTHM. LUNGS SOUNDS ARE CLEAR THROUGHOUT. ABDOMEN IS FLAT, SOFT, AND NON-TENDER WITH NORMAL BOWEL SOUNDS NOTED IN ALL QUADRANTS. HE IS HEMODYNAMICALLY STABLE TODAY. OTHERWISE, WE WILL CONTINUE CURRENT PLAN OF CARE. WE PLAN TO FOLLOW UP WITH AM LABS AND CONTINUE TO MONITOR PATIENT. - Past Medical Family Social History Past Med/Fam/Surg Hx: No changes since H&P Allergies: Allergies codeine Allergy (Verified 09/12/16 09:13) hydroxyzine [From Vistaril] Adverse Reaction (Verified 09/12/16 17:58) - Review of Systems ROS: No change since H&P - Vital Signs and I&O's Vital Signs: Temperature 99.2 F Pulse Rate [Left Brachial] 81 Pulse Rate [Right Brachial] 79 Respiratory Rate 20 Blood Pressure [Left Arm] 150/87 Blood Pressure [Right Arm] 150/84 Blood Pressure 152/73 O2 Sat by Pulse Oximetry 96 Intake and Output: Intake & Output 01/13/17 01/14/17 01/15/17 01/16/17 11:59 11:59 11:59 11:59 Intake Total 960 2370 840 Balance 960 2370 840 - Physical Exam Oriented: Person Eyes: Normal Ear: Normal Nose: Normal Throat: Normal Respiratory: Diminished Cardiovascular: Normal : Normal Auscultation: Bowel Sounds: Normal Tenderness: Normal Skin: Normal Musculoskeletal: Normal Psychiatric: Agitation Mood Description: Anxious Affect: Normal Speech Pattern: Clear, Inappropriate - Laboratory and Diagnostics Result Diagrams: 01/15/17 08:20 01/15/17 08:20 Labs: 01/11/17 00:03 Urine,Clean Catch Urine Culture - Final 01/11/17 20:43 Blood Blood Culture - Preliminary 01/11/17 20:37 Blood Blood Culture - Preliminary Laboratory WBC 9.7 X10^3/uL (3.6-10.0) 01/15/17 08:20 RBC 5.51 X10^6/uL (4.7-6.0) 01/15/17 08:20 Hgb 16.1 g/dL (13.5-18.0) 01/15/17 08:20 Hct 46.4 % (42.0-54.0) 01/15/17 08:20 MCV 84.2 fL (80.0-100.0) 01/15/17 08:20 MCH 29.3 pg (27.0-34.0) 01/15/17 08:20 MCHC 34.8 g/dL (33.0-35.0) 01/15/17 08:20 RDW 14.0 % (11.6-16.5) 01/15/17 08:20 Plt Count 180 X10^3/uL (150.0-450.0) 01/15/17 08:20 MPV 8.2 fL (7.4-11.0) 01/15/17 08:20 Neut % 78.5 % (42.0-75.0) H 01/15/17 08:20 Lymph % 13.1 % (21.0-51.0) L 01/15/17 08:20 [place] % 6.8 % (0.0-13.0) 01/15/17 08:20 Eos % 1.1 % (0.9-2.9) 01/15/17 08:20 Baso % 0.5 % (0.2-1.0) 01/15/17 08:20 Neut # 7.6 x10^3/uL (2.2-4.8) H 01/15/17 08:20 Lymph # 1.3 X10^3/uL (1.3-2.9) 01/15/17 08:20 [place] # 0.7 x10^3/uL (0.3-0.8) 01/15/17 08:20 Eos # 0.1 x10^3/uL (0.0-0.2) 01/15/17 08:20 Baso # 0.1 X10^3/uL (0.0-0.1) 01/15/17 08:20 Absolute Nucleated RBC 0.1 /100WBC 01/15/17 08:20 Sodium 143 mmol/L (136-145) 01/15/17 08:20 Corrected Sodium TNP 01/15/17 08:20 Potassium 3.8 mmol/L (3.5-5.1) 01/15/17 08:20 Chloride 105 mmol/L (98-107) 01/15/17 08:20 Carbon Dioxide 28.1 mmol/L (21-32) 01/15/17 08:20 BUN 27 mg/dL (7-18) H 01/15/17 08:20 Creatinine 1.14 mg/dL (0.70-1.30) 01/15/17 08:20 Est GFR (MDRD) Af Amer > 60 (>60) 01/15/17 08:20 Est GFR (MDRD) Non-Af > 60 (>60) 01/15/17 08:20 Glucose 99 mg/dL (65-99) 01/15/17 08:20 Calcium 9.1 mg/dL (8.5-10.1) 01/15/17 08:20 Corrected Calcium TNP 01/15/17 08:20 Total Bilirubin 1.30 mg/dL (0.2-1.0) H 01/15/17 08:20 AST 27 Units/L (15-37) 01/15/17 08:20 ALT 27 Units/L (12-78) 01/15/17 08:20 Alkaline Phosphatase 66 Units/L (46-116) 01/15/17 08:20 Total Protein 6.9 g/dL (6.4-8.2) 01/15/17 08:20 Albumin 3.8 g/dL (3.4-5.0) 01/15/17 08:20 Globulin 3.1 g/dL (2.5-4.5) 01/15/17 08:20 Albumin/Globulin Ratio 1.2 Ratio (1.1-2.1) 01/15/17 08:20 Specimen Type Clean catch urine 01/11/17 00:03 Urine Color Yellow (YELLOW) 01/11/17 00:03 Urine Appearance Clear (CLEAR) 01/11/17 00:03 Urine pH 6.5 (5.0 - 8.0) 01/11/17 00:03 Ur Specific [place] 1.020 (1.000-1.030) 01/11/17 00:03 Urine Protein Negative (NEGATIVE) 01/11/17 00:03 Urine Glucose (UA) Negative (NEGATIVE) 01/11/17 00:03 Urine Ketones Negative (NEGATIVE) 01/11/17 00:03 Urine Occult Blood Negative (NEGATIVE) 01/11/17 00:03 Urine Nitrite Negative (NEGATIVE) 01/11/17 00:03 Urine Bilirubin Negative (NEGATIVE) 01/11/17 00:03 Urine Urobilinogen Normal (NORMAL) 01/11/17 00:03 Ur Leukocyte Esterase Negative (NEGATIVE) 01/11/17 00:03 Urine RBC None seen /HPF (NEGATIVE) 01/11/17 00:03 Urine WBC 0-2 /HPF (NEGATIVE) 01/11/17 00:03 Ur Squamous Epith Cells Rare /HPF (NEGATIVE) 01/11/17 00:03 Urine Bacteria Negative /HPF (NEGATIVE) 01/11/17 00:03 Ur Culture Indicated? Yes/culture set up 01/11/17 00:03 - Plan (1) Hemorrhagic cerebrovascular accident (CVA) Status: Acute Plan: REPEAT BRAIN MRI THIS AM, CATAPRES PATCH 0.3MG TD WEEKLY, PROCARDIA XL 30MG PO DAILY, AND ZESTRIL 40MG PO DAILY FOR BLOOD PRESSURE CONTROL, ZYPREXA 2.5MG PO BID FOR CONFUSION, CONTINUE TO MONITOR./ STOP TOVIAZ (2) Dementia with behavioral disturbance Status: Acute Plan: [facility] referral (3) Hypertension Status: Acute (4) Mental status alteration Status: Acute Qualifiers: Altered mental status type: transient alteration of awareness Qualified Code(s): R40.4 - Transient alteration of awareness Plan: CBC, CMP, UA, CXR (5) Osteoarthritis Status: Acute
[2017-01-16] MEDS: XANAX PO SCH ×3 (06:20→21:13)
[2017-01-16] MEDS: MILK OF MAGNESIA PO SCH ×2 (11:16→20:22)
[2017-01-16] MEDS: PROCARDIA XL PO SCH (11:17)
[2017-01-16] MEDS: ZESTRIL TAB 40 MG PO SCH (11:17)
[2017-01-16] MEDS ORDERED: ROBITUSSIN DM PO PRN (13:03)
--- NOTE | 2017-01-16 14:15 | RAD ---
Examination: AP chest History: SOB and cough Comparison reference 01/11/2017 Findings: Continued normal heart size with arteriosclerotic aorta, clear lungs and pleural spaces. Impression: No change; no acute abnormality demonstrated. Reported By:
[2017-01-16] MEDS: COLACE CAP 100 MG PO SCH (20:22)
[2017-01-17] MEDS: NS 1/2 1000 ML IV 1,000 ML IV SCH (03:47)
[2017-01-17] MEDS: XANAX PO SCH ×3 (05:26→21:10)
[2017-01-17 07:45] LABS: HEMATOCRIT 41.8 % (42.0-54.0); HEMOGLOBIN 14.4 g/dL (13.5-18.0); MEAN CORPUSCULAR HEMOGLOBIN 29.1 pg (27.0-34.0); MEAN CORPUSCULAR HGB CONC 34.4 g/dL (33.0-35.0); MEAN CORPUSCULAR VOLUME 84.4 fL (80.0-100.0); PLATELET COUNT 174 X10^3/uL (150.0-450.0); RED BLOOD COUNT 4.96 X10^6/uL (4.7-6.0); RED CELL DISTRIBUTION WIDTH 13.9 % (11.6-16.5); WHITE BLOOD COUNT 8.1 X10^3/uL (3.6-10.0)
[2017-01-17 07:46] LABS: BASOPHILS # (AUTO) 0.1 X10^3/uL (0.0-0.1); BASOPHILS % (AUTO) 0.7 % (0.2-1.0); EOSINOPHILS # (AUTO) 0.3 x10^3/uL (0.0-0.2); EOSINOPHILS % (AUTO) 3.5 % (0.9-2.9); LYMPHOCYTES # (AUTO) 1.5 X10^3/uL (1.3-2.9); LYMPHOCYTES % (AUTO) 18.5 % (21.0-51.0); MEAN PLATELET VOLUME 8.3 fL (7.4-11.0); MONOCYTES # (AUTO) 0.7 x10^3/uL (0.3-0.8); MONOCYTES % (AUTO) 8.5 % (0.0-13.0); NEUTROPHILS # (AUTO) 5.5 x10^3/uL (2.2-4.8); NEUTROPHILS % (AUTO) 68.8 % (42.0-75.0)
[2017-01-17 07:52] LABS: ALANINE AMINOTRANSFERASE 24 Units/L (12-78); ALBUMIN 3.2 g/dL (3.4-5.0); ALKALINE PHOSPHATASE 58 Units/L (46-116); ASPARTATE AMINO TRANSFERASE 29 Units/L (15-37); BLOOD UREA NITROGEN 49 mg/dL (7-18); CALCIUM 8.7 mg/dL (8.5-10.1); CARBON DIOXIDE 28.9 mmol/L (21-32); CHLORIDE 108 mmol/L (98-107); COR CA(FOR HYPOALB) 9.3 mg/dL (8.5-10.1); COR NA(FOR HYPERGLY) 145 mmol/L (136-145); CREATININE 1.22 mg/dL (0.70-1.30); SODIUM 144 mmol/L (136-145); TOTAL PROTEIN 6.3 g/dL (6.4-8.2); eGFR BLACK RACES > 60 (>60); eGFR NON BLACK RACES > 60 (>60)
[2017-01-17] MEDS: PROCARDIA XL PO SCH (10:02)
[2017-01-17] MEDS: ZESTRIL TAB 40 MG PO SCH (10:02)
[2017-01-17] MEDS: MILK OF MAGNESIA PO SCH ×2 (10:13→21:10)
[2017-01-17] MEDS: COLACE CAP 100 MG PO SCH (21:10)
[2017-01-18] MEDS: NS 1/2 1000 ML IV 1,000 ML IV SCH (05:29)
[2017-01-18] MEDS: XANAX PO SCH ×2 (05:30→13:40)
[2017-01-18 06:16] LABS: BASOPHILS # (AUTO) 0.1 X10^3/uL (0.0-0.1); EOSINOPHILS # (AUTO) 0.3 x10^3/uL (0.0-0.2); EOSINOPHILS % (AUTO) 3.7 % (0.9-2.9); HEMATOCRIT 42.6 % (42.0-54.0); HEMOGLOBIN 14.9 g/dL (13.5-18.0); LYMPHOCYTES # (AUTO) 1.5 X10^3/uL (1.3-2.9); LYMPHOCYTES % (AUTO) 20.7 % (21.0-51.0); MEAN CORPUSCULAR HEMOGLOBIN 29.5 pg (27.0-34.0); MEAN CORPUSCULAR HGB CONC 34.9 g/dL (33.0-35.0); MEAN CORPUSCULAR VOLUME 84.6 fL (80.0-100.0); MEAN PLATELET VOLUME 8.9 fL (7.4-11.0); MONOCYTES # (AUTO) 0.7 x10^3/uL (0.3-0.8); MONOCYTES % (AUTO) 9.5 % (0.0-13.0); NEUTROPHILS # (AUTO) 4.7 x10^3/uL (2.2-4.8); NEUTROPHILS % (AUTO) 65.1 % (42.0-75.0); PLATELET COUNT 169 X10^3/uL (150.0-450.0); RED BLOOD COUNT 5.03 X10^6/uL (4.7-6.0); RED CELL DISTRIBUTION WIDTH 13.6 % (11.6-16.5); WHITE BLOOD COUNT 7.3 X10^3/uL (3.6-10.0)
[2017-01-18 06:23] LABS: ALANINE AMINOTRANSFERASE 25 Units/L (12-78); ALBUMIN 3.3 g/dL (3.4-5.0); ALKALINE PHOSPHATASE 61 Units/L (46-116); ASPARTATE AMINO TRANSFERASE 37 Units/L (15-37); BLOOD UREA NITROGEN 37 mg/dL (7-18); CARBON DIOXIDE 30.1 mmol/L (21-32); CHLORIDE 105 mmol/L (98-107); COR CA(FOR HYPOALB) 9.6 mg/dL (8.5-10.1); COR NA(FOR HYPERGLY) 141 mmol/L (136-145); CREATININE 0.95 mg/dL (0.70-1.30); SODIUM 141 mmol/L (136-145); TOTAL PROTEIN 6.5 g/dL (6.4-8.2); eGFR BLACK RACES > 60 (>60); eGFR NON BLACK RACES > 60 (>60)
[2017-01-18] MEDS: MILK OF MAGNESIA PO SCH (09:21)
[2017-01-18] MEDS: PROCARDIA XL PO SCH (09:21)
[2017-01-18] MEDS: ZESTRIL TAB 40 MG PO SCH (09:21)
--- NOTE | 2017-01-18 11:40 | MRI ---
MRI BRAIN WITHOUT CONTRAST CLINICAL HISTORY: 76-year-old male with history of intracranial hemorrhage. COMPARISON: CT head 01/11/2017, MR brain 01/12/2017 and 01/15/2017. TECHNIQUE: Multiplanar, multisequence MR images of the brain were obtained without contrast. FINDINGS: There is no evidence of diffusion restriction. The craniocervical junction is normal. Pitui tary and optic nerve complex are normal. Multifocal confluent and punctate T2 FLAIR signal hyperinten sities are present within the subcortical/juxta cortical, periventricular and supraventricular white matter, left yousuf, left brachium pontis and left cerebellar hemisphere that are nonspecific in appear ance but most likely to represent microvascular white matter ischemic changes. Chronic lacunar infarc ts within the bilateral basal ganglia. Re-demonstration of continued involuting small hemorrhagic inf arction within the anterior left thalamus. Normal signal characteristics and morphology are demonstra srinivas within the cerebral cortex and corpus callosum. Bilateral enlarged prevascular spaces within the basal ganglia. The major vascular flow voids, to include the dural venous sinuses, are intact. Age ad vanced cortical volume loss is present, with commensurate sulcal and ventricular prominence. The basi lar cisterns are normal. Bilateral lens implants. The orbits and globes are otherwise within normal limits. The paranasal sinu ses, tympanic cavities and mastoids are clear. IMPRESSION: 1. No acute ischemic or hemorrhagic insult. 2. Continued involution of the anterior left thalamic hemorrhagic infarct. 3. Moderate to severe, chronic microvascular white matter ischemic disease with multiple punctate lac unar infarcts within the bilateral basal ganglia. Reported By:
[2017-01-18 11:57] VITALS: BP 141/78
== END 2017-01-18 16:15 | disposition home health service (06) | DRG 884 ==
LOC: UNDOADMOB 13:32 → MED/SURG 13:32 → OBSVTOIN 18:36 → MED/SURG 01-12 13:05
PROVIDERS: ADMIT Internal Medicine; ATTEND Internal Medicine
DX: R40.4 Transient alteration of awareness (principal); I63.8 Other cerebral infarction; K21.9 Gastro-esophageal reflux disease without esophagitis; I10 Essential (primary) hypertension; F03.91 Unspecified dementia, unspecified severity, with behavioral disturbance; M19.90 Unspecified osteoarthritis, unspecified site; R53.1 Weakness; E87.1 Hypo-osmolality and hyponatremia; R94.4 Abnormal results of kidney function studies
CPT/HCPCS: 36415; 70450; 70551; 71010; 80053; 81001; 85025; 87040; 87086; 93005; 93010; A4216; A4222; J1630

== ENCOUNTER 2017-01-24 11:09 | Observation (INO) | payer OTHER ==
[2017-01-24] MEDS ORDERED: HALDOL INJ IM ONE (16:02)
[2017-01-24] MEDS: SINEquan PO SCH ×2 (16:27→20:14)
[2017-01-24 16:28] VITALS: BMI 24.5
--- NOTE | 2017-01-24 16:33 | RAD ---
History: CHF, hypertension Study: Chest single view Findings: Single AP view of the chest is compared to the previous study of 01/16/2017. Heart and medi astinal structures are unchanged in appearance with minimal calcification present within the aortic a rch. Lungs and pleural spaces are clear. There are mild degenerative changes of both AC joints. Impression: No change in the appearance of the chest and no evidence of acute disease. Reported By:
[2017-01-24 16:35] LABS: BASOPHILS # (AUTO) 0.1 X10^3/uL (0.0-0.1); EOSINOPHILS # (AUTO) 0.2 x10^3/uL (0.0-0.2); EOSINOPHILS % (AUTO) 2.5 % (0.9-2.9); HEMATOCRIT 37.9 % (42.0-54.0); HEMOGLOBIN 13.2 g/dL (13.5-18.0); LYMPHOCYTES # (AUTO) 1.5 X10^3/uL (1.3-2.9); LYMPHOCYTES % (AUTO) 19.2 % (21.0-51.0); MEAN CORPUSCULAR HEMOGLOBIN 29.3 pg (27.0-34.0); MEAN CORPUSCULAR HGB CONC 34.8 g/dL (33.0-35.0); MEAN PLATELET VOLUME 8.5 fL (7.4-11.0); MONOCYTES # (AUTO) 0.4 x10^3/uL (0.3-0.8); MONOCYTES % (AUTO) 5.4 % (0.0-13.0); NEUTROPHILS # (AUTO) 5.6 x10^3/uL (2.2-4.8); NEUTROPHILS % (AUTO) 71.9 % (42.0-75.0); PLATELET COUNT 211 X10^3/uL (150.0-450.0); RED BLOOD COUNT 4.51 X10^6/uL (4.7-6.0); RED CELL DISTRIBUTION WIDTH 13.6 % (11.6-16.5); WHITE BLOOD COUNT 7.8 X10^3/uL (3.6-10.0)
[2017-01-24] MEDS ORDERED: HALDOL INJ IM PRN (16:44)
[2017-01-24 16:52] LABS: ALANINE AMINOTRANSFERASE 27 Units/L (12-78); ALBUMIN 3.4 g/dL (3.4-5.0); ALKALINE PHOSPHATASE 58 Units/L (46-116); ASPARTATE AMINO TRANSFERASE 26 Units/L (15-37); BLOOD UREA NITROGEN 25 mg/dL (7-18); CALCIUM 8.9 mg/dL (8.5-10.1); CARBON DIOXIDE 29.2 mmol/L (21-32); CHLORIDE 108 mmol/L (98-107); COR NA(FOR HYPERGLY) 146 mmol/L (136-145); CREATININE 1.14 mg/dL (0.70-1.30); SODIUM 144 mmol/L (136-145); TOTAL PROTEIN 6.6 g/dL (6.4-8.2); eGFR BLACK RACES > 60 (>60); eGFR NON BLACK RACES > 60 (>60)
[2017-01-24] MEDS: XANAX PO SCH ×2 (17:07→21:07)
--- NOTE | 2017-01-24 17:35 | PCM.PROG ---
Progress Note - Progress Note for Day of Date: 01/25/17 - Subjective Subjective: 76WM WITH PROGRESSIVE DEMENTIA WITH AGRESSION AND EXTREME AGITATION. PT IS MORE CALM THIS AM AFTER MEDICATION. SPOUSE STATED HE WAS VERY AGRESSIVE AND HYPERACTIVE. PLAN TO TRANSFER TO [facility], CONTINUE CURRENT MEDICATIONS - Past Medical Family Social History Past Med/Fam/Surg Hx: No changes since H&P Allergies: Allergies codeine Allergy (Verified 09/12/16 09:13) hydroxyzine [From Vistaril] Adverse Reaction (Verified 09/12/16 17:58) risperidone Adverse Reaction (Verified 01/24/17 16:20) - Review of Systems ROS: No change since H&P - Vital Signs and I&O's Vital Signs: Temperature 98.7 F Pulse Rate [Left Radial] 75 Respiratory Rate 20 Blood Pressure [Left Arm] 141/78 Blood Pressure [Right Arm] 145/72 Blood Pressure 141/78 O2 Sat by Pulse Oximetry 98 Intake and Output: Intake & Output 01/22/17 01/23/17 01/24/17 01/25/17 11:59 11:59 11:59 11:59 Intake Total 0 Output Total 0 Balance 0 - Physical Exam Oriented: Not Oriented Eyes: Normal Ear: Normal Nose: Normal Throat: Normal Respiratory: Diminished Cardiovascular: Normal : Normal Auscultation: Bowel Sounds: Normal Palpation: Normal Tenderness: Normal Skin: Decreased Turgur Musculoskeletal: Motor Deficit (mild diffuse weakness) Psychiatric: Agitation Mood Description: Hostile Speech Pattern: Clear, Inappropriate - Laboratory and Diagnostics Result Diagrams: 01/25/17 04:10 01/25/17 04:10 Labs: Laboratory WBC 7.8 X10^3/uL (3.6-10.0) 01/24/17 16:20 RBC 4.51 X10^6/uL (4.7-6.0) L 01/24/17 16:20 Hgb 13.2 g/dL (13.5-18.0) L 01/24/17 16:20 Hct 37.9 % (42.0-54.0) L 01/24/17 16:20 MCV 84.0 fL (80.0-100.0) 01/24/17 16:20 MCH 29.3 pg (27.0-34.0) 01/24/17 16:20 MCHC 34.8 g/dL (33.0-35.0) 01/24/17 16:20 RDW 13.6 % (11.6-16.5) 01/24/17 16:20 Plt Count 211 X10^3/uL (150.0-450.0) 01/24/17 16:20 MPV 8.5 fL (7.4-11.0) 01/24/17 16:20 Neut % 71.9 % (42.0-75.0) 01/24/17 16:20 Lymph % 19.2 % (21.0-51.0) L 01/24/17 16:20 [place] % 5.4 % (0.0-13.0) 01/24/17 16:20 Eos % 2.5 % (0.9-2.9) 01/24/17 16:20 Baso % 1.0 % (0.2-1.0) 01/24/17 16:20 Neut # 5.6 x10^3/uL (2.2-4.8) H 01/24/17 16:20 Lymph # 1.5 X10^3/uL (1.3-2.9) 01/24/17 16:20 [place] # 0.4 x10^3/uL (0.3-0.8) 01/24/17 16:20 Eos # 0.2 x10^3/uL (0.0-0.2) 01/24/17 16:20 Baso # 0.1 X10^3/uL (0.0-0.1) 01/24/17 16:20 Absolute Nucleated RBC 0.0 /100WBC 01/24/17 16:20 Sodium 144 mmol/L (136-145) 01/24/17 16:20 Corrected Sodium 146 mmol/L (136-145) H 01/24/17 16:20 Potassium 4.1 mmol/L (3.5-5.1) 01/24/17 16:20 Chloride 108 mmol/L (98-107) H 01/24/17 16:20 Carbon Dioxide 29.2 mmol/L (21-32) 01/24/17 16:20 BUN 25 mg/dL (7-18) H 01/24/17 16:20 Creatinine 1.14 mg/dL (0.70-1.30) 01/24/17 16:20 Est GFR (MDRD) Af Amer > 60 (>60) 01/24/17 16:20 Est GFR (MDRD) Non-Af > 60 (>60) 01/24/17 16:20 Glucose 168 mg/dL (65-99) H 01/24/17 16:20 Calcium 8.9 mg/dL (8.5-10.1) 01/24/17 16:20 Corrected Calcium TNP 01/24/17 16:20 Total Bilirubin 0.30 mg/dL (0.2-1.0) 01/24/17 16:20 AST 26 Units/L (15-37) 01/24/17 16:20 ALT 27 Units/L (12-78) 01/24/17 16:20 Alkaline Phosphatase 58 Units/L (46-116) 01/24/17 16:20 Total Protein 6.6 g/dL (6.4-8.2) 01/24/17 16:20 Albumin 3.4 g/dL (3.4-5.0) 01/24/17 16:20 Globulin 3.2 g/dL (2.5-4.5) 01/24/17 16:20 Albumin/Globulin Ratio 1.1 Ratio (1.1-2.1) 01/24/17 16:20 - Plan (1) Dementia with behavioral disturbance Status: Acute Plan: CONTINUE CURRENT MEDICATION REGIMEN, FALL PRECAUTIONS. RESTRAINTS NEEDED FOR PT PROTECTION, BP MONITORING. CONTINUE WITH PLANS FOR TRANSFER TO BEHAVIORAL HEALTH (2) Generalized weakness Status: Acute (3) Hypertension Status: Acute (4) Mental status alteration Status: Acute (5) Osteoarthritis Status: Acute
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
[2017-01-24] MEDS ORDERED: HALDOL INJ IVP ONE (20:37)
[2017-01-24] MEDS ORDERED: XANAX PO SCH (22:00)
[2017-01-25] MEDS: XANAX PO SCH (05:37)
[2017-01-25 06:10] LABS: BASOPHILS # (AUTO) 0.1 X10^3/uL (0.0-0.1); BASOPHILS % (AUTO) 0.9 % (0.2-1.0); EOSINOPHILS # (AUTO) 0.2 x10^3/uL (0.0-0.2); EOSINOPHILS % (AUTO) 3.3 % (0.9-2.9); HEMATOCRIT 34.1 % (42.0-54.0); HEMOGLOBIN 12.1 g/dL (13.5-18.0); LYMPHOCYTES # (AUTO) 1.7 X10^3/uL (1.3-2.9); LYMPHOCYTES % (AUTO) 26.3 % (21.0-51.0); MEAN CORPUSCULAR HEMOGLOBIN 29.4 pg (27.0-34.0); MEAN CORPUSCULAR HGB CONC 35.6 g/dL (33.0-35.0); MEAN CORPUSCULAR VOLUME 82.6 fL (80.0-100.0); MEAN PLATELET VOLUME 8.5 fL (7.4-11.0); MONOCYTES # (AUTO) 0.5 x10^3/uL (0.3-0.8); MONOCYTES % (AUTO) 7.3 % (0.0-13.0); NEUTROPHILS # (AUTO) 4.1 x10^3/uL (2.2-4.8); NEUTROPHILS % (AUTO) 62.2 % (42.0-75.0); PLATELET COUNT 177 X10^3/uL (150.0-450.0); RED BLOOD COUNT 4.13 X10^6/uL (4.7-6.0); RED CELL DISTRIBUTION WIDTH 13.4 % (11.6-16.5); WHITE BLOOD COUNT 6.6 X10^3/uL (3.6-10.0)
[2017-01-25 06:20] LABS: ALANINE AMINOTRANSFERASE 25 Units/L (12-78); ALBUMIN 2.9 g/dL (3.4-5.0); ALKALINE PHOSPHATASE 54 Units/L (46-116); ASPARTATE AMINO TRANSFERASE 21 Units/L (15-37); BLOOD UREA NITROGEN 23 mg/dL (7-18); CALCIUM 8.8 mg/dL (8.5-10.1); CARBON DIOXIDE 28.4 mmol/L (21-32); CHLORIDE 111 mmol/L (98-107); COR CA(FOR HYPOALB) 9.7 mg/dL (8.5-10.1); COR NA(FOR HYPERGLY) 147 mmol/L (136-145); CREATININE 0.99 mg/dL (0.70-1.30); SODIUM 146 mmol/L (136-145); TOTAL PROTEIN 5.6 g/dL (6.4-8.2); eGFR BLACK RACES > 60 (>60); eGFR NON BLACK RACES > 60 (>60)
[2017-01-25] MEDS ORDERED: PriLOSEC PO SCH ×2 (09:00)
[2017-01-25] MEDS ORDERED: ASPIRIN EC 81 MG PO SCH ×2 (09:00)
[2017-01-25] MEDS ORDERED: ZESTRIL TAB 40 MG PO SCH (09:00)
[2017-01-25] MEDS ORDERED: LISINOPRIL 40 MG PO SCH (09:00)
[2017-01-25 11:36] VITALS: BP 132/62
[2017-01-25] MEDS ORDERED: SEROquel TAB 100 MG PO SCH (21:00)
== END 2017-01-25 13:25 ==
LOC: MED/SURG 11:09
PROVIDERS: ADMIT Internal Medicine; ATTEND Internal Medicine
DX: F03.91 Unspecified dementia, unspecified severity, with behavioral disturbance (principal); R41.82 Altered mental status, unspecified; D64.89 Other specified anemias; E87.0 Hyperosmolality and hypernatremia; E11.65 Type 2 diabetes mellitus with hyperglycemia; K21.9 Gastro-esophageal reflux disease without esophagitis; I10 Essential (primary) hypertension; R53.1 Weakness; M19.90 Unspecified osteoarthritis, unspecified site; Z78.1 Physical restraint status
CPT/HCPCS: 36415; 71010; 80053; 85025; A4222; G0378; J1630